=== PATIENT | male | born 1960 | race Hispanic/Latino ===

== ENCOUNTER 2017-02-06 04:21 | Emergency (ER) | payer MEDICARE, MEDICAID ==
[2017-02-06 04:29] VITALS: BMI 30.7
[2017-02-06 04:30] VITALS: PULSE 78; RESP 18; TEMP 98.4; O2SAT 99
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
[2017-02-06 07:19] VITALS: BP 124/70
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
== END 2017-02-06 07:18 | disposition home or self-care (01) ==
LOC: ED 04:21
DX: S00.83XA Contusion of other part of head, initial encounter (principal); Y09 Assault by unspecified means; H11.32 Conjunctival hemorrhage, left eye; R04.0 Epistaxis; E11.9 Type 2 diabetes mellitus without complications; I10 Essential (primary) hypertension; E78.5 Hyperlipidemia, unspecified

== ENCOUNTER 2018-07-08 06:42 | Day surgery (SDC) | payer MEDICARE, MEDICAID ==
[2018-07-04 12:53] VITALS: BMI 29.7
[2018-07-08] MEDS ORDERED: Bupivacaine 0.5% Inj(30mL) ONE (11:49)
[2018-07-08] MEDS ORDERED: Liquid Adhesive TOP ONE (11:49)
[2018-07-08] MEDS ORDERED: Propofol 10 mg/ml Inj (20 ML) ONE (12:09)
[2018-07-08] MEDS ORDERED: Rocuronium 10 mg/ml (5 ml) ONE (12:10)
[2018-07-08] MEDS ORDERED: Midazolam 2 MG/2 ML VIAL ONE (12:10)
[2018-07-08] MEDS ORDERED: Methylene Blue 10 mg/mL(10ml) IV ONE (12:47)
[2018-07-08] MEDS ORDERED: Neostigmine Methylsulfate 3mg/3ml Syringe IV ONE (13:02)
[2018-07-08] MEDS ORDERED: Desflurane Inhalation Anesthetic Liq (240 ml) ONE (13:47)
--- NOTE | 2018-07-08 13:49 | NM ---
Date of service: 07/08/2018 HISTORY: 58Y Year old female with left breast cancer. TECHNIQUE: Multiple injections of 0.8 mCi of 99m Tc filtered sulfur colloid (total volume of 8 ml) were administered into the left breast tissue surrounding the nipple. Anterior projection images of the chest were subsequently obtained. FINDINGS: Activity is seen around the nipple. There is no migration into the axilla IMPRESSION: As above
[2018-07-08] MEDS ORDERED: Bupivacaine Liposomal Inj 20 ml ONE (13:55)
[2018-07-08] MEDS ORDERED: Sodium Chloride 0.9% 30 ML IV ONE (13:55)
[2018-07-08] MEDS ORDERED: Bupivacaine Liposomal Inj 20 ml INJ ONE (14:11)
[2018-07-08] MEDS ORDERED: HYDROmorphone 0.5 mg/0.5 ml ISec IVP PRN (14:28)
[2018-07-08] MEDS ORDERED: Lactated Ringer's 1,000 ML IV SCH (14:30)
--- NOTE | 2018-07-08 14:31 | PCM.SURG1 ---
Surgeon's Initial Post Op Note - Surgeon's Notes Surgeon: Dr. Bowers Cash Room Clerk: Dr. Bain PGY3, Eros MS4 Type of Anesthesia: General Endo Anesthesia Administered By: Dr. Harden, Dr Qureshi Pre-Operative Diagnosis: Left Breast Invasive Ductal Carcinoma Operative Findings: See operative dictation Post-Operative Diagnosis: Left Breast Invasive Ductal Carcinoma Operation Performed: Left modified radical mastectomy with sentinal lymph node biopsy and and anterior axilliary disection Specimen/Specimens Removed: Left breast, Sentinal lymph node Estimated Blood Loss: EBL {In ML}: 20 Blood Products Given: N/A Drains Used: Shan Post-Op Condition: Good Date of Surgery/Procedure: 07/08/18 Time of Surgery/Procedure: 14:31
[2018-07-08 17:09] VITALS: RESP 20; O2SAT 95
[2018-07-08] MEDS: ceFAZolin 1 gm in NS 1 GM/100 ML BAG IVPB SCH (21:43)
[2018-07-08] MEDS: Enoxaparin 30 mg Syringe SC SCH (21:45)
[2018-07-08 22:37] LABS: BASO # 0.01 K/mm3 (0.0-2.0); BASO % 0.1 % (0.0-3.0); GRAN # 10.38 (1.4-6.5); GRAN % 88.4 % (50.0-68.0); HEMOGLOBIN 13.3 g/dL (14.0-18.0); LYMPH # 0.7 (1.2-3.4); LYMPH % 6.1 % (22.0-35.0); MEAN CELL VOLUME 84.8 fl (80.0-105.0); MEAN CORPUSCULAR HEMOGLOBIN 28.9 pg (25.0-35.0); MEAN CORPUSCULAR HGB CONC 34.1 g/dl (31.0-37.0); MEAN PLATELET VOLUME 9.6 fl (7.0-11.0); MONO # 0.6 (0.1-0.6); MONO % 5.4 % (1.0-6.0); RBC 4.6 10^6/uL (3.5-6.1); WHITE BLOOD COUNT 11.7 10^3/ul (4.5-11.0)
--- NOTE | 2018-07-08 23:40 | OP ---
PROCEDURE DATE: 07/08/2018 PREOPERATIVE DIAGNOSIS: Left breast cancer. POSTOPERATIVE DIAGNOSIS: Left breast cancer. PROCEDURE PERFORMED: Left mastectomy with sentinel lymph node biopsy and superficial left axillary lymphadenectomy. SURGEON: Mohsen Bowers MD. DRIVEWAY SEALER: Adrian Bain DO. ANESTHESIOLOGISTS: Dr. Ajay Rm MD and Jeffrey Qureshi MD. ANESTHESIA: General endotracheal anesthesia. ESTIMATED BLOOD LOSS: Minimal. SPECIMEN: Left breast with superficial and axillary content and sentinel lymph node. INDICATIONS: The patient is a 58-year-old male with history of left breast mass, which was diagnosed through the biopsy as a breast cancer. The patient was brought in for a left mastectomy and sentinel lymph node biopsy with possible biopsy of the lymph nodes. DESCRIPTION OF PROCEDURE: The patient was brought to the operating room, placed on the operating table in the supine position. The patient was connected to EKG, blood pressure and pulse oximetry monitors. An elevation roll was placed under the left shoulder in order to expose the axilla better. The patient then was prepped and draped in the usual sterile fashion. First, a standard time-out procedure took place when everybody in the room agreed as to the patient/s identity, diagnoses and the procedure to be performed. An operative as well as postoperative plan were explained to the OR team. We then proceeded with surgery. First, the area of the left breast was infiltrated with lidocaine mixed with Marcaine. Using lidocaine, the area of the infusion was infiltrated after it was marked. An elliptical incision was made including the nipple and dissection was done by raising flaps superiorly and inferiorly below and above the breast and the breast tissue was carefully lifted off the pectoralis muscle and towards the axilla. Scintigraphy was done with the gamma probe proving the area of the most pickup being in the inferior axilla. This was carefully dissected out and a fairly large lymph node was removed. This was sent for frozen section as a sentinel lymph node. The superficial lymphadenopathy was done as well by including superficial portion of the axillary content. Once this was detached, the breast was marked by marking the tale of the breast farthest towards the axilla and then superior margin of the breast was also marked with a short stitch. Once this was all done, the specimen was sent out for pathology. The wound was then copiously irrigated. All the bleeding points were cauterized. The Shan drain was placed and sutured to the skin with stitch. The wound was closed in layers using 3-0 Vicryl for the deep dermal layer and surgical staple for skin and sterile Dermabond dressing was applied to the wound. The patient tolerated the procedure well and there were no complications. The patient was awakened and transferred to the recovery room for further observation. Mohsen Bowers MD
[2018-07-09] MEDS: ceFAZolin 1 gm in NS 1 GM/100 ML BAG IVPB SCH (05:35)
--- NOTE | 2018-07-09 08:02 | CP.PCM.PN ---
Subjective - Date & Time of Evaluation Date of Evaluation: 07/09/18 Time of Evaluation: 08:00 - Subjective Subjective: Patient seen and examined at bedside. No acute events overnight. JOSE LUIS drain in place and draining 360 mL serosanguinous fluid overnight. Denies chest pain, abdominal pain, or any other complaints at this time. Objective - Vital Signs/Intake and Output Vital Signs (last 24 hours): Temp Pulse Resp BP Pulse Ox 98.9 F 71 20 131/81 95 07/08/18 17:08 07/08/18 17:08 07/08/18 17:08 07/08/18 17:08 07/08/18 17:08 Intake and Output: 07/09/18 07/09/18 06:59 18:59 Intake Total 360 Output Total 1035 Balance -675 - Medications Medications: Current Medications Atorvastatin Calcium (Lipitor) 40 mg PO DAILY [facility] Enoxaparin Sodium (Lovenox) 30 mg SC 1000,2200 PAUL; Protocol Last Admin: 07/08/18 21:45 Dose: 30 mg Cefazolin Sodium (Ancef 1gm In Ns) 1 gm in 100 mls @ 100 mls/hr IVPB Q8 PAUL; Protocol Last Admin: 07/09/18 05:35 Dose: 100 mls/hr Metformin HCl (Glucophage) 500 mg PO DAILY [facility] Non-Formulary Medication (Nebivolol [Bystolic]) 5 mg PO DAILY [facility] - Labs Labs: 07/08/18 22:35 - Constitutional Appears: Well, Non-toxic, No Acute Distress - Head Exam Head Exam: ATRAUMATIC, NORMOCEPHALIC - Eye Exam Eye Exam: Normal appearance - ENT Exam ENT Exam: Mucous Membranes Moist - Respiratory Exam Respiratory Exam: NORMAL BREATHING PATTERN. absent: Accessory Muscle Use, Respiratory Distress - Cardiovascular Exam Cardiovascular Exam: RRR - GI/Abdominal Exam GI & Abdominal Exam: Soft. absent: Distended, Guarding, Tenderness Additional comments: Chest binders in place, incision site C/D/I, left JOSE LUIS drain in place - Neurological Exam Neurological Exam: Alert, Awake, Oriented x3 - Skin Skin Exam: Dry, Intact, Normal Color, Warm Assessment and Plan - Assessment and Plan (Free Text) Assessment: Patient is a 58 year old male with left breast cancer s/p left mastectomy with sentinel node. Plan: - Encourage ambulation as tolerated. - Measure I's and O's. - Advance to regular diet today. - Plan to discharge today with JOSE LUIS drain, will teach sister how to empty and record drain output. Discussed case with Dr. Elissa Mcdonald DO PGY-1
[2018-07-09 08:36] VITALS: BP 117/78; PULSE 80; TEMP 98
[2018-07-09 09:13] LABS: BASO # 0.01 K/mm3 (0.0-2.0); BASO % 0.1 % (0.0-3.0); EOS % 0.1 % (1.5-5.0); GRAN # 6.6 (1.4-6.5); GRAN % 67.2 % (50.0-68.0); HEMOGLOBIN 12.1 g/dL (14.0-18.0); MEAN CELL VOLUME 84.1 fl (80.0-105.0); MEAN CORPUSCULAR HEMOGLOBIN 28.7 pg (25.0-35.0); MEAN CORPUSCULAR HGB CONC 34.1 g/dl (31.0-37.0); MEAN PLATELET VOLUME 9.4 fl (7.0-11.0); MONO # 1.2 (0.1-0.6); MONO % 12.6 % (1.0-6.0); RBC 4.22 10^6/uL (3.5-6.1); RED CELL DISTRIBUTION WIDTH 12.9 % (11.5-14.5); WHITE BLOOD COUNT 9.8 10^3/ul (4.5-11.0)
[2018-07-09] MEDS ORDERED: Non Formulary Medication (Rosuvastatin Calcium [Crestor] 10 MG) PO SCH (10:00)
[2018-07-09] MEDS ORDERED: Non Formulary Medication (Nebivolol [Bystolic] 5 MG) PO SCH (10:00)
[2018-07-09] MEDS: Enoxaparin 30 mg Syringe SC SCH (10:15)
--- NOTE | 2018-07-09 13:32 | CP.PCM.DIS ---
Provider - Provider Attending physician: Mohsen Bowers MD Primary care physician: Cheko Anne MD Time Spent in preparation of Discharge (in minutes): 45 Diagnosis - Discharge Diagnosis (1) Cancer of left male breast Status: Resolved (2) HTN (hypertension) Status: Chronic Hospital Course - Lab Results Lab Results: Most Recent Lab Values WBC 9.8 10^3/ul (4.5-11.0) 07/09/18 09:00 RBC 4.22 10^6/uL (3.5-6.1) 07/09/18 09:00 Hgb 12.1 g/dL (14.0-18.0) L 07/09/18 09:00 Hct 35.5 % (42.0-52.0) L 07/09/18 09:00 MCV 84.1 fl (80.0-105.0) 07/09/18 09:00 MCH 28.7 pg (25.0-35.0) 07/09/18 09:00 MCHC 34.1 g/dl (31.0-37.0) 07/09/18 09:00 RDW 12.9 % (11.5-14.5) 07/09/18 09:00 Plt Count 166 10^3/uL (120.0-450.0) 07/09/18 09:00 MPV 9.4 fl (7.0-11.0) 07/09/18 09:00 Gran % 67.2 % (50.0-68.0) 07/09/18 09:00 Lymph % (Auto) 20.0 % (22.0-35.0) L 07/09/18 09:00 [place]alle % (Auto) 12.6 % (1.0-6.0) H 07/09/18 09:00 Eos % (Auto) 0.1 % (1.5-5.0) L 07/09/18 09:00 Baso % (Auto) 0.1 % (0.0-3.0) 07/09/18 09:00 Gran # 6.60 (1.4-6.5) H 07/09/18 09:00 Lymph # (Auto) 2.0 (1.2-3.4) 07/09/18 09:00 [place] # (Auto) 1.2 (0.1-0.6) H 07/09/18 09:00 Eos # (Auto) 0.0 (0.0-0.7) 07/09/18 09:00 Baso # (Auto) 0.01 K/mm3 (0.0-2.0) 07/09/18 09:00 Blood Type O POSITIVE 07/08/18 11:25 Blood Type Confirm O POSITIVE 07/08/18 12:00 Antibody Screen Negative 07/08/18 11:25 BBK History Checked No verified bt 07/08/18 11:25 Discharge Exam - Head Exam Head Exam: ATRAUMATIC, NORMOCEPHALIC - Eye Exam Eye Exam: Normal appearance - ENT Exam ENT Exam: Mucous Membranes Moist - Respiratory Exam Respiratory Exam: NORMAL BREATHING PATTERN. absent: Respiratory Distress - Cardiovascular Exam Cardiovascular Exam: RRR. absent: Tachycardia - GI/Abdominal Exam GI & Abdominal Exam: Soft. absent: Distended, Guarding, Tenderness Additional comments: Chest binder in place, incision site C/D/I, left JOSE LUIS drain in place. - Extremities Exam Extremities exam: normal inspection - Neurological Exam Neurological exam: Alert, Oriented x3 - Psychiatric Exam Psychiatric exam: Normal Affect, Normal Mood - Skin Skin Exam: Dry, Intact, Normal Color, Warm Discharge Plan - Discharge Medications Prescriptions: Cephalexin [Keflex] 500 mg PO BID #10 capsule - Follow Up Plan Condition: GOOD Disposition: HOME/ ROUTINE Instructions: Sameer-Barnes Drain, Hypertension (DC), Hypertension (GEN) Additional Instructions: 1. Take Keflex twice a day by mouth for 5 days. 2. Empty and measure drain daily as you were taught by surgical team. 3. Please follow up with your primary care doctor within 1-2 weeks after discharge, Dr. Anne. 4. Please follow up with Dr. Bowers in 1 week to remove drain. 5. Go to the emergency room for worsening or newly concerning symptoms. Referrals: Cheko Anne MD [Primary Care Provider] - Mohsen Bowers MD [Staff Provider] -
== END 2018-07-09 13:43 | disposition home or self-care (01) ==
LOC: SDS 06:42 → 3RSO 16:03 → SDS 07-09 13:43
PROVIDERS: ATTEND General Practice
DX: C50.922 Malignant neoplasm of unspecified site of left male breast (principal); I10 Essential (primary) hypertension; E11.9 Type 2 diabetes mellitus without complications; E66.9 Obesity, unspecified; Z68.29 Body mass index [BMI] 29.0-29.9, adult; E78.00 Pure hypercholesterolemia, unspecified; F79 Unspecified intellectual disabilities; E78.5 Hyperlipidemia, unspecified; Z79.899 Other long term (current) drug therapy
CPT/HCPCS: 19307; 36415 ×2; 78195; 85025 ×2; 86850; 86900; 88305; 88307; 88331; A9541; J0131; J0690 ×2; J1100; J1170; J1650 ×2; J2001; J2250; J2405; J2704; J2710; J2765; J3010 ×2; J7120 ×2

== ENCOUNTER 2018-07-19 17:57 | Emergency (ER) | payer MEDICARE, MEDICAID ==
[2018-07-19 18:30] VITALS: RESP 18; TEMP 98.5; BMI 32.9
--- NOTE | 2018-07-19 18:41 | ED PDOC ---
Arrival/HPI - General Chief Complaint: Abnormal Skin Integrity Time Seen by Provider: 07/19/18 18:38 Historian: Patient - History of Present Illness Narrative History of Present Illness (Text): 07/19/18 18:41 58 yo M s/p L mastectomy by Dr. Bowers on 07/08/18, presents for wound check to his surgical scar to the L chest. Reports no fevers, chills, CP, SOB, N/V, abdominal pain. Has no other complaints. Patient's mother is at the bedside, who reports that the patient has bruising to his chest and abdomen, which has been present since his surgery and is improving. Of note, mother adds that the patient is unaware he had mastectomy for cancer and she would prefer that the patient isn't aware due to his mental disability. Past Medical History - Past History Past History: No Previous - Infectious Disease Hx of Infectious Diseases: None - Tetanus Immunization Tetanus Immunization: Unknown - Cardiac Hx Pacemaker: No - Pulmonary Hx Respiratory Disorders: No - Neurological Hx Paralysis: No - HEENT Hx HEENT Disorder: No - Renal Hx Renal Disorder: No - Endocrine/Metabolic Hx Endocrine Disorders: No - Hematological/Oncological Hx Blood Transfusions: No - Integumentary Hx Dermatological Disorder: No - Musculoskeletal/Rheumatological Hx Musculoskeletal Disorders: No - Gastrointestinal Hx Gastrointestinal Disorders: Yes Hx Gastroesophageal Reflux: Yes - Genitourinary/Gynecological Hx Genitourinary Disorders: No - Psychiatric Hx Emotional Abuse: No Hx Physical Abuse: No Hx Substance Use: No - Past Surgical History Past Surgical History: No Previous - Surgical History Hx Tonsillectomy: Yes - Anesthesia Hx Anesthesia Reactions: No Hx Malignant Hyperthermia: No - Suicidal Assessment Feels Threatened In Home Enviroment: No Family/Social History Family/Social History: Unknown Family HX Smoking Status: Never Smoked Hx Alcohol Use: No Hx Substance Use: No Hx Substance Use Treatment: No Allergies/Home Meds Allergies/Adverse Reactions: Allergies No Known Allergies Allergy (Verified 07/19/18 18:16) Home Medications: Home Meds Medication Instructions Recorded Confirmed Atorvastatin [Lipitor] 40 mg PO DAILY 07/05/18 07/08/18 Rosuvastatin Calcium [Crestor] 10 mg PO DAILY 07/05/18 07/08/18 metFORMIN [glucOPHAGE] 500 mg PO DAILY 07/05/18 07/08/18 Review of Systems - Review of Systems Constitutional: absent: Fatigue, Weight Change, Fevers Respiratory: absent: SOB, Cough Cardiovascular: absent: Chest Pain, Palpitations Gastrointestinal: absent: Abdominal Pain, Diarrhea, Vomiting Genitourinary Male: absent: Dysuria, Frequency Musculoskeletal: absent: Arthralgias, Back Pain, Neck Pain Skin: Other (+bruising). absent: Rash, Pruritis Physical Exam Vital Signs Temp Pulse Resp BP Pulse Ox 07/19/18 18:17 98.5 F 87 18 141/82 96 Temperature: Afebrile Blood Pressure: Normal Pulse: Regular Respiratory Rate: Normal Appearance: Positive for: Well-Appearing, Non-Toxic, Comfortable Pain Distress: None Mental Status: Positive for: Alert and Oriented X 3 - Systems Exam Head: Present: Atraumatic, Normocephalic Pupils: Present: PERRL Extroacular Muscles: Present: EOMI Conjunctiva: Present: Normal Mouth: Present: Moist Mucous Membranes Neck: Present: Normal Range of Motion Respiratory/Chest: Present: Clear to Auscultation, Good Air Exchange, Other (+diagonal stapled surgical scar to the L chest with surrounding ecchymosis and +dried blood noted from the dressing. ). No: Respiratory Distress, Accessory Muscle Use Cardiovascular: Present: Regular Rate and Rhythm, Normal S1, S2. No: Murmurs Abdomen: Present: Other (+ecchymosis to the entire abdomen ). No: Tenderness, Distention, Peritoneal Signs Back: Present: Normal Inspection Upper Extremity: Present: Normal Inspection. No: Cyanosis, Edema Lower Extremity: Present: Normal Inspection. No: Edema Neurological: Present: GCS=15, CN II-XII Intact, Speech Normal Skin: Present: Warm, Dry, Normal Color. No: Rashes Psychiatric: Present: Alert, Oriented x 3, Normal Insight, Normal Concentration Medical Decision Making ED Course and Treatment: 07/19/18 18:38 Plan : - consult with surgery Case d/w Dr. Bowers, who states that the patient had a hematoma to his L chest after the surgery and his drain has been removed so the bruising is not new and is improving. He states that his surgical elastic knitter will evaluate the patient and provide disposition. Patient seen and evaluated by surgical elastic knitter Dr. Jen Ivy, who evaluated the patient at the bedside, she cleaned and dressed his wound. She discussed the case with Dr. Bowers, who agrees with outpatient f/u. Advised to follow up with Dr. Bowers in 1-2 days without fail. Return to the emergency room at any time for any new or worsening symptoms. - PA / LEAD PASTOR / Resident Statement MD/DO has reviewed & agrees with the documentation as recorded. Disposition/Present on Arrival - Present on Arrival Any Indicators Present on Arrival: No History of DVT/PE: No History of Uncontrolled Diabetes: No Urinary Catheter: No History of Decub. Ulcer: No History Surgical Site Infection Following: None - Disposition Have Diagnosis and Disposition been Completed?: Yes Diagnosis: Hematoma, Visit for wound check Disposition: HOME/ ROUTINE Disposition Time: 19:00 Patient Plan: Discharge Condition: STABLE Discharge Instructions (ExitCare): Contusion (DC) Additional Instructions: Thank you for letting us take care of you today. You were treated for hematoma and wound check. The emergency medical care you received today was directed at your acute symptoms. It may take several days for your symptoms to resolve. Return to the Emergency Department if your symptoms worsen, do not improve, or if you have any other problems. Please follow up with Dr. Bowers as advised by surgical elastic knitter. Bring any paperwork you were given at discharge with you along with any medications you are taking to your follow up visit. Our treatment cannot replace ongoing medical care by a primary care provider (PCP) outside of the emergency department. Thank you for allowing the [facility] team to be part of your care today. Forms: [employer] (Kazakh)
[2018-07-19 20:26] VITALS: BP 123/64; PULSE 79; O2SAT 97
== END 2018-07-19 21:03 | disposition home or self-care (01) ==
LOC: ED 17:57
DX: L76.32 Postprocedural hematoma of skin and subcutaneous tissue following other procedure (principal); Y83.8 Other surgical procedures as the cause of abnormal reaction of the patient, or of later complication, without mention of misadventure at the time of the procedure; Y92.89 Other specified places as the place of occurrence of the external cause

== ENCOUNTER 2018-07-20 09:34 | Inpatient (IN) | payer MEDICARE, MEDICAID ==
--- NOTE | 2018-07-20 09:57 | ED PDOC ---
Addendum entered and electronically signed by Pato Blair PA-C 07/20/18 13:57: Addendum Addendum: 07/20/18 13:56 Dr. Reinoso is on the blue list and he is awared. I spoke to DR. Segura, discussed about the case/labs/radiology result as she is covering DR. Hendrickson( covering Dr. Anne), agreed to admit this patient and Dr. Pride on the consult but admit under Dr. Hendrickson service. Original Note: Arrival/HPI - General Time Seen by Provider: 07/20/18 09:46 Historian: Patient - History of Present Illness Narrative History of Present Illness (Text): 07/20/18 09:54 58 year old male, pmh including htn/hld/dm/lt. breast mass/cancer?, nkda, send in by Dr. Chen for lt. breast surgical wound bleeding from hematoma. Pt. stated that he was seen here in the Emergency room yesterday for the same problem as he is bleeding from the surgical site. Pt. had recent lt. breast biopsy, drained removed, been developing hematoma and bleeding from the hematoma site, seen here in the Emergency room yesterday and was clear to discharge home, noticed to have bleeding again today so he came back to the Emergency room which the surgical instrument mechanic is at the bedside prior to my arrival. Pt. has no fever or chills, no night sweat, no rash, no numbness or tingling, no palpitation, no change in vision, no other medical or psychological complaints. Past Medical History - Provider Review Nursing Documentation Reviewed: Yes - Past History Past History: No Previous - Infectious Disease Hx of Infectious Diseases: None - Tetanus Immunization Tetanus Immunization: Unknown - Cardiac Hx Pacemaker: No - Pulmonary Hx Respiratory Disorders: No - Neurological Hx Paralysis: No - HEENT Hx HEENT Disorder: No - Renal Hx Renal Disorder: No - Endocrine/Metabolic Hx Endocrine Disorders: No - Hematological/Oncological Hx Blood Transfusions: No - Integumentary Hx Dermatological Disorder: No - Musculoskeletal/Rheumatological Hx Musculoskeletal Disorders: No - Gastrointestinal Hx Gastrointestinal Disorders: Yes Hx Gastroesophageal Reflux: Yes - Genitourinary/Gynecological Hx Genitourinary Disorders: No - Psychiatric Hx Emotional Abuse: No Hx Physical Abuse: No Hx Substance Use: No - Past Surgical History Past Surgical History: No Previous - Surgical History Hx Tonsillectomy: Yes - Anesthesia Hx Anesthesia Reactions: No Hx Malignant Hyperthermia: No - Suicidal Assessment Feels Threatened In Home Enviroment: No Family/Social History - Physician Review Nursing Documentation Reviewed: Yes Family/Social History: Unknown Family HX Smoking Status: Never Smoked Hx Alcohol Use: No Hx Substance Use: No Hx Substance Use Treatment: No Allergies/Home Meds Allergies/Adverse Reactions: Allergies No Known Allergies Allergy (Verified 07/19/18 18:16) Home Medications: Home Meds Medication Instructions Recorded Confirmed Atorvastatin [Lipitor] 40 mg PO DAILY 07/05/18 07/08/18 Rosuvastatin Calcium [Crestor] 10 mg PO DAILY 07/05/18 07/08/18 metFORMIN [glucOPHAGE] 500 mg PO DAILY 07/05/18 07/08/18 Review of Systems - Review of Systems Constitutional: absent: Fatigue, Fevers Eyes: absent: Vision Changes ENT: absent: Hearing Changes Respiratory: absent: SOB, Cough Cardiovascular: absent: Chest Pain Gastrointestinal: absent: Abdominal Pain, Nausea, Vomiting Skin: absent: Rash, Pruritis, Skin Lesions, Ulcer, Cellulitis Neurological: absent: Headache, Dizziness Psychiatric: absent: Anxiety, Depression, Suicidal Ideation Physical Exam - Systems Exam Head: Present: Atraumatic, Normocephalic Pupils: Present: PERRL Extroacular Muscles: Present: EOMI Conjunctiva: Present: Normal Mouth: Present: Moist Mucous Membranes Neck: Present: Normal Range of Motion Respiratory/Chest: Present: Clear to Auscultation, Good Air Exchange, Other (Lt. lateral chest/breast region visible surgical wound with cristian and hematoma noted with mild oozing with gauze dressing noted, no obvious bony tenderness. ). No: Respiratory Distress, Accessory Muscle Use, Wheezes, Decreased Breath Sounds, Rales, Retracting, Rhonchi, Tachypneic Cardiovascular: Present: Regular Rate and Rhythm, Normal S1, S2. No: Murmurs Abdomen: Present: Other (visible resolving scattered hematoma with more on the lt. sided > rt. side). No: Tenderness, Distention, Peritoneal Signs Back: Present: Normal Inspection Upper Extremity: Present: Normal Inspection. No: Cyanosis, Edema Lower Extremity: Present: Normal Inspection. No: Edema Neurological: Present: GCS=15, CN II-XII Intact, Speech Normal Skin: Present: Warm, Dry, Normal Color. No: Rashes Psychiatric: Present: Alert, Oriented x 3, Normal Insight, Normal Concentration Medical Decision Making ED Course and Treatment: 07/20/18 09:58 -human resources vice president Dr. Sharon Medellin on the bedside, discussed the case with DR. Reinoso, plan is to admit the patient to Dr. Reinoos service for possible surgical procedure to remove the hematoma. -Labs/ekg/cxr ordered 07/20/18 11:05 -EKG: NSR @ 79 BPM, no ST elevation or depression, no T wave inversion -Chest X-Ray Emergency room wet read with no active disease, no acute changes compared with previously except lt. breast/chest with cristian. -Labs show hgb 9.8 from 12.1 (07/09/2018) -Type and screen ordered -All labs and radiology results discussed with the patient. -Will admit the patient as per the surgical team and Dr. Reinoso. - RAD Interpretation Radiology Orders: Date of service: 07/20/2018 HISTORY: medical clearance COMPARISON: 06/19/2018 FINDINGS: LUNGS: No active pulmonary disease. PLEURA: No significant pleural effusion identified, no pneumothorax apparent. CARDIOVASCULAR: Normal. OSSEOUS STRUCTURES: No significant abnormalities. VISUALIZED UPPER ABDOMEN: Normal. OTHER FINDINGS: Left breast/chest wall cristian. IMPRESSION: No active disease. House Decorator: Radiologist - EKG Interpretation EKG Interpretation (Text): 07/20/18 10:43 -EKG: NSR @ 79 BPM, no ST elevation or depression, no T wave inversion Interpreted by ED Physician: Yes Type: 12 lead EKG - PA / NOC TECHNICIAN / Resident Statement MD/DO has reviewed & agrees with the documentation as recorded. Disposition/Present on Arrival - Present on Arrival Any Indicators Present on Arrival: No History of DVT/PE: No History of Uncontrolled Diabetes: No Urinary Catheter: No History of Decub. Ulcer: No History Surgical Site Infection Following: None - Disposition Have Diagnosis and Disposition been Completed?: Yes Diagnosis: Hematoma, Breast mass in male, Bleeding from wound Disposition: HOSPITALIZED Disposition Time: 09:59 Patient Plan: Admission, Observation Patient Problems: Current Active Problems Problem Status Onset Bleeding from wound Acute Breast mass in male Acute Hematoma Acute Condition: STABLE Referrals: Cheko Anne MD [Primary Care Provider] - Follow up with primary
--- NOTE | 2018-07-20 10:17 | CP.PCM.HP ---
History of Present Illness - History of Present Illness History of Present Illness: Surgery H&P Dr. Bowers CC: bleeding from surgical site HPI: Patient is a 58 y/o male s/p Left mastectomy for breast Ca who presents complaining of moderate bleeding from the surgical site. Patient reports being evaluated last night in the ER for similar symptoms. The dressing was changed and patient d/c'd home. Patient reports waking up this morning with a blood drenched shirt. Dressing was not changed at home prior to arrival. He denies dizziness, weakness, SOB, CP. PMH: HTN, DM, Obesity, breast CA, PSH: L mastectomy, tonsillectomy Social: lives with sister who is primary caregiver due to mental disability, no etoh, tobacco, or drug use Present on Admission - Present on Admission Any Indicators Present on Admission: No Review of Systems - Constitutional Constitutional: absent: Anorexia, Chills, Fever - EENT Eyes: absent: Blurred Vision, Change in Vision Nose/Mouth/Throat: absent: Sore Throat, Neck Pain - Cardiovascular Cardiovascular: absent: Chest Pain, Diaphoresis - Respiratory Respiratory: absent: Cough, Wheezing - Gastrointestinal Gastrointestinal: absent: Abdominal Pain, Bloating - Genitourinary Genitourinary: absent: Hematuria, Pyuria - Integumentary Integumentary: Bleeding Lesions - Neurological Neurological: absent: Headaches, Weakness - Psychiatric Psychiatric: absent: Behavioral Changes, Depression - Endocrine Endocrine: absent: Polyphagia, Polyuria - Hematologic/Lymphatic Hematologic: Easy Bruising. absent: Easy Bleeding Past Patient History - Infectious Disease Hx of Infectious Diseases: None - Tetanus Immunizations Tetanus Immunization: Unknown - Past Medical History & Family History Past Medical History?: Yes - Past Social History Smoking Status: Never Smoked - CARDIAC Hx Cardiac Disorders: Yes Hx Hypertension: Yes Hx Pacemaker: No - PULMONARY Hx Respiratory Disorders: No - NEUROLOGICAL Hx Paralysis: No - HEENT Hx HEENT Problems: No - RENAL Hx Chronic Kidney Disease: No - ENDOCRINE/METABOLIC Hx Endocrine Disorders: Yes Hx Diabetes Mellitus Type 2: Yes - HEMATOLOGICAL/ONCOLOGICAL Hx Blood Transfusions: No - INTEGUMENTARY Hx Dermatological Problems: No - MUSCULOSKELETAL/RHEUMATOLOGICAL Hx Musculoskeletal Disorders: No - GASTROINTESTINAL Hx Gastrointestinal Disorders: Yes Hx Gastroesophageal Reflux: Yes - GENITOURINARY/GYNECOLOGICAL Hx Genitourinary Disorders: No - PSYCHIATRIC Hx Emotional Abuse: No Hx Physical Abuse: No Hx Substance Use: No - SURGICAL HISTORY Hx Breast Biopsy: Yes Hx Mastectomy: Yes Hx Tonsillectomy: Yes - ANESTHESIA Hx Anesthesia: Yes Hx Anesthesia Reactions: No Hx Malignant Hyperthermia: No Meds Allergies/Adverse Reactions: Allergies Allergy/AdvReac Type Severity Reaction Status Date / Time No Known Allergies Allergy Verified 07/19/18 18:16 Physical Exam - Constitutional Appears: Non-toxic, No Acute Distress - Head Exam Head Exam: ATRAUMATIC, NORMOCEPHALIC - Eye Exam Eye Exam: EOMI, Normal appearance - ENT Exam ENT Exam: Mucous Membranes Moist - Respiratory Exam Respiratory Exam: NORMAL BREATHING PATTERN. absent: Respiratory Distress - Cardiovascular Exam Cardiovascular Exam: REGULAR RHYTHM. absent: Tachycardia - Skin Additional comments: Left breast surgical site closed with cristian, moderate bruising noted to axillary line apparently improved per patient report, area of swelling noted beneth mastectomy site, nonindurated probable hematoma. Medial staple line with .5cm opening oozing dark old blood, most likely from retained hematoma. Old drain site CDI, healing well. Assessment & Plan - Assessment and Plan (Free Text) Assessment: 58 y/o male s/p left mastectomy for breast CA on Jul 08 now with bleeding from surgical site, most likely retained hematoma Plan: -stat type and screen and basic labs -ok for diet -pressure dressing in place -change dressing as needed with gauze, ABD and kerlex vs ijeoma wrap for compression -restart home meds -admit for serial hgbs and wound care -Vitals Q4hr -d/w Dr. Bowers and ER team AKWhite PGY4 - Date & Time Date: 07/20/18 Time: 10:28
[2018-07-20] MEDS ORDERED: Sodium Chloride 0.9% 1,000 ML IV SCH (10:30)
[2018-07-20] MEDS ORDERED: Dextrose 50% SYRINGE Inj (50 ml) IV PRN (10:34)
[2018-07-20 10:54] LABS: BASO # 0.01 K/mm3 (0.0-2.0); BASO % 0.1 % (0.0-3.0); EOS # 0.3 (0.0-0.7); EOS % 2.8 % (1.5-5.0); GRAN # 6.53 (1.4-6.5); GRAN % 71.3 % (50.0-68.0); HEMOGLOBIN 9.8 g/dL (14.0-18.0); LYMPH # 1.4 (1.2-3.4); LYMPH % 15.2 % (22.0-35.0); MEAN CORPUSCULAR HEMOGLOBIN 28.2 pg (25.0-35.0); MEAN CORPUSCULAR HGB CONC 32.5 g/dl (31.0-37.0); MEAN PLATELET VOLUME 9.3 fl (7.0-11.0); MONO % 10.6 % (1.0-6.0); RBC 3.47 10^6/uL (3.5-6.1); RED CELL DISTRIBUTION WIDTH 13.3 % (11.5-14.5); WHITE BLOOD COUNT 9.2 10^3/ul (4.5-11.0)
--- NOTE | 2018-07-20 10:56 | RAD ---
Date of service: 07/20/2018 HISTORY: medical clearance COMPARISON: 06/19/2018 FINDINGS: LUNGS: No active pulmonary disease. PLEURA: No significant pleural effusion identified, no pneumothorax apparent. CARDIOVASCULAR: Normal. OSSEOUS STRUCTURES: No significant abnormalities. VISUALIZED UPPER ABDOMEN: Normal. OTHER FINDINGS: Left breast/chest wall cristian. IMPRESSION: No active disease.
[2018-07-20 11:00] LABS: ALB/GLOB RATIO 1.2 (1.1-1.8); ALBUMIN 3.7 g/dL (3.0-4.8); ALT/SGPT 35 U/L (7-56); AST/SGOT 25 U/L (17-59); BLOOD UREA NITROGEN 9 mg/dL (7-21); CALCIUM 9.1 mg/dL (8.4-10.5); GFR NON-AFRICAN AMERICAN > 60; INR 1.24; PARTIAL THROMBOPLASTIN TIME 29.9 Seconds (25.1-36.5); PROTHROMBIN TIME 14.3 SECONDS (9.4-12.5)
[2018-07-20] MEDS ORDERED: Insulin Lispro (humaLOG) LOW Coverage SC SCH (11:30)
[2018-07-20] MEDS ORDERED: Pneumococcal 23-Valent Vaccine IM ONE (18:57)
[2018-07-20] MEDS ORDERED: Influenza Vaccine 60 mcg/0.5 mL SYR (4YR UP) IM ONE (18:57)
[2018-07-20 18:58] VITALS: BMI 28.3
[2018-07-20] MEDS: Vancomycin 1gm in NS 250ml 1 GM/250 ML BAG IVPB SCH (19:08)
[2018-07-20] MEDS: Insulin Lispro (humaLOG) MEDIUM Coverage SC SCH (22:03)
--- NOTE | 2018-07-20 22:27 | CARD ---
APPROVED REPORT Date of service: 07/20/2018 EKG Measurement Heart [id number] <Conclusion> Normal sinus rhythm Nonspecific ST abnormality Abnormal ECG
[2018-07-21] MEDS: Vancomycin 1gm in NS 250ml 1 GM/250 ML BAG IVPB SCH (05:43)
[2018-07-21] MEDS: Insulin Lispro (humaLOG) MEDIUM Coverage SC SCH ×3 (07:00→23:15)
--- NOTE | 2018-07-21 07:32 | CP.PCM.PN ---
Subjective - Date & Time of Evaluation Date of Evaluation: 07/21/18 Time of Evaluation: 06:30 - Subjective Subjective: progress note for Dr. Bowers Patient seen and examined this am at bedside. He is resting comfortably and has no complaints. Dressing is slightly saturated. Patient otherwise denies CHAMORRO, CP, SOB, abdominal pain, n/v, f/c. Objective - Vital Signs/Intake and Output Vital Signs (last 24 hours): Temp Pulse Resp BP Pulse Ox 98.7 F 73 18 125/70 97 07/20/18 15:06 07/20/18 15:06 07/20/18 18:34 07/20/18 15:06 07/20/18 15:06 Intake and Output: 07/21/18 07/21/18 06:59 18:59 Intake Total 360 Output Total 300 Balance 60 - Medications Medications: Current Medications Atorvastatin Calcium (Lipitor) 40 mg PO DAILY [facility] Dextrose (Dextrose 50% Inj) 0 ml IV STAT PRN; Protocol PRN Reason: Hypoglycemia Protocol Dextrose (Dextrose 5% In Water 1000 Ml) 1,000 mls @ 0 mls/hr IV .Q0M PRN; Protocol PRN Reason: Hypoglycemia Protocol Ceftriaxone Sodium (Rocephin 1 Gram Ivpb) 1 gm in 100 mls @ 100 mls/hr IVPB DAILY PAUL; Protocol Vancomycin HCl (Vancomycin 1gm) 1 gm in 250 mls @ 167 mls/hr IVPB Q12H PAUL; Protocol Last Admin: 07/21/18 05:43 Dose: 167 mls/hr Insulin Human Lispro (Humalog Med) 0 units SC ACHS PAUL; Protocol Last Admin: 07/20/18 22:03 Dose: Not Given Losartan Potassium (Cozaar) 100 mg PO DAILY [facility] Metformin HCl (Glucophage) 500 mg PO DAILY [facility] - Labs Labs: 07/20/18 10:30 07/20/18 10:30 PT 14.3 SECONDS (9.4-12.5) H 07/20/18 10:30 INR 1.24 07/20/18 10:30 APTT 29.9 Seconds (25.1-36.5) 07/20/18 10:30 - Constitutional Appears: Well, Non-toxic, No Acute Distress - Head Exam Head Exam: ATRAUMATIC, NORMOCEPHALIC - Eye Exam Eye Exam: EOMI - ENT Exam ENT Exam: Mucous Membranes Moist - Respiratory Exam Respiratory Exam: NORMAL BREATHING PATTERN - Cardiovascular Exam Cardiovascular Exam: REGULAR RHYTHM - GI/Abdominal Exam GI & Abdominal Exam: Soft. absent: Distended, Guarding, Tenderness - Extremities Exam Extremities Exam: absent: Calf Tenderness, Pedal Edema, Tenderness - Neurological Exam Neurological Exam: Alert, Awake, Oriented x3 - Psychiatric Exam Psychiatric exam: Normal Affect, Normal Mood - Skin Skin Exam: Dry, Warm Additional comments: ecchymosis over the left pectoral area extending into the left flank, incision site with cristian is intact with dark bloody output onto dressing consistent with underlying hematoma, dressing changed at bedside Assessment and Plan - Assessment and Plan (Free Text) Assessment: 58 yr old male with hematoma s/p left mastectomy for breast cancer POD 13 Plan: * dressing changes q8 * keep pressure dressing in place * further recs per Dr. Elissa Ivy, PGY 1
[2018-07-21 08:18] LABS: BASO # 0.02 K/mm3 (0.0-2.0); BASO % 0.3 % (0.0-3.0); EOS # 0.3 (0.0-0.7); EOS % 3.9 % (1.5-5.0); GRAN # 5.31 (1.4-6.5); GRAN % 66.4 % (50.0-68.0); HEMOGLOBIN 8.9 g/dL (14.0-18.0); LYMPH # 1.5 (1.2-3.4); LYMPH % 18.9 % (22.0-35.0); MEAN CELL VOLUME 87.1 fl (80.0-105.0); MEAN CORPUSCULAR HEMOGLOBIN 27.9 pg (25.0-35.0); MEAN PLATELET VOLUME 9.1 fl (7.0-11.0); MONO # 0.8 (0.1-0.6); MONO % 10.5 % (1.0-6.0); RBC 3.19 10^6/uL (3.5-6.1); RED CELL DISTRIBUTION WIDTH 13.1 % (11.5-14.5)
[2018-07-21 08:34] LABS: BLOOD UREA NITROGEN 9 mg/dL (7-21); CALCIUM 8.6 mg/dL (8.4-10.5); GFR NON-AFRICAN AMERICAN > 60
[2018-07-21] MEDS ORDERED: Non Formulary Medication (Nebivolol [Bystolic] 5 MG) PO SCH (10:00)
[2018-07-21] MEDS: cefTRIAXone 1 gm 1 GM/100 ML BAG IVPB SCH (11:19)
--- NOTE | 2018-07-21 20:55 | PN ---
DATE: 07/21/2018 SUBJECTIVE: The patient is 58 years old, seen and examined, ambulating, has pressure bandages on his chest that has no more active bleeding. PHYSICAL EXAMINATION: VITAL SIGNS: The patient is afebrile, pulse 78, respirations 20, blood pressure 111/68. LUNGS: Bilateral fair airflow. No rhonchi or crackle. HEART: S1 and S2 audible. ABDOMEN: Soft, obese, nontender. No rebound. No guarding. NEUROLOGIC: The patient is awake, alert, oriented, communicative, ambulatory. LABORATORY DATA: WBC is 8, hemoglobin 8.9, hematocrit 27.8, platelet 226. Chemistry: Sodium 134, potassium 4.1, chloride 101, CO2 of 29, BUN 9, creatinine 0.8, blood sugar of 130. ASSESSMENT: 1. Status post left mastectomy. 2. Mentally challenged. 3. Anemia. 4. Hypertension. 5. [id number] diabetes. PLAN: Currently, the patient is on IV antibiotic. He has pressure bandage done. We will monitor his blood sugar. Follow up CBC in the a.m. Omkar Segura MD
[2018-07-22] MEDS: Vancomycin 1gm in NS 250ml 1 GM/250 ML BAG IVPB SCH ×2 (05:27→18:00)
[2018-07-22] MEDS ORDERED: Potassium Chloride 20 MEQ in Dextrose 5%/0.45% NS 1,000 ML IV SCH (07:30)
[2018-07-22 07:32] LABS: BASO # 0.02 K/mm3 (0.0-2.0); BASO % 0.3 % (0.0-3.0); EOS # 0.4 (0.0-0.7); EOS % 4.9 % (1.5-5.0); GRAN # 4.5 (1.4-6.5); GRAN % 61.3 % (50.0-68.0); HEMOGLOBIN 9.1 g/dL (14.0-18.0); LYMPH # 1.6 (1.2-3.4); LYMPH % 22.3 % (22.0-35.0); MEAN CELL VOLUME 85.8 fl (80.0-105.0); MEAN CORPUSCULAR HEMOGLOBIN 28.1 pg (25.0-35.0); MEAN CORPUSCULAR HGB CONC 32.7 g/dl (31.0-37.0); MEAN PLATELET VOLUME 8.9 fl (7.0-11.0); MONO # 0.8 (0.1-0.6); MONO % 11.2 % (1.0-6.0); RBC 3.24 10^6/uL (3.5-6.1); RED CELL DISTRIBUTION WIDTH 13.1 % (11.5-14.5); WHITE BLOOD COUNT 7.3 10^3/ul (4.5-11.0)
--- NOTE | 2018-07-22 07:34 | CP.PCM.PN ---
Subjective - Date & Time of Evaluation Date of Evaluation: 07/22/18 Time of Evaluation: 07:30 - Subjective Subjective: General Surgery progress note for Dr. Bowers Patient seen and examined at bedside. No acute events overnight. Dressing is slightly saturated. Patient denies fevers, chills, shortness of breath, chest pain, abdominal pain, or any other complaints at this time. Objective - Vital Signs/Intake and Output Vital Signs (last 24 hours): Temp Pulse Resp BP Pulse Ox 98.3 F 76 18 113/68 96 07/21/18 22:00 07/21/18 22:00 07/21/18 22:00 07/21/18 22:00 07/21/18 22:00 Intake and Output: 07/22/18 07/22/18 06:59 18:59 Intake Total 360 Balance 360 - Medications Medications: Current Medications Atorvastatin Calcium (Lipitor) 40 mg PO DAILY [facility] Last Admin: 07/21/18 10:00 Dose: 40 mg Dextrose (Dextrose 50% Inj) 0 ml IV STAT PRN; Protocol PRN Reason: Hypoglycemia Protocol Dextrose (Dextrose 5% In Water 1000 Ml) 1,000 mls @ 0 mls/hr IV .Q0M PRN; Protocol PRN Reason: Hypoglycemia Protocol Ceftriaxone Sodium (Rocephin 1 Gram Ivpb) 1 gm in 100 mls @ 100 mls/hr IVPB DAILY [facility]; Protocol Last Admin: 07/21/18 11:19 Dose: 100 mls/hr Vancomycin HCl (Vancomycin 1gm) 1 gm in 250 mls @ 167 mls/hr IVPB Q12H [facility]; Protocol Last Admin: 07/22/18 05:27 Dose: 167 mls/hr Potassium Chloride 20 meq/ (Dextrose/Sodium Chloride) 1,010 mls @ 115 mls/hr IV .Q8H47M [facility] Insulin Human Lispro (Humalog Med) 0 units SC ACHS [facility]; Protocol Last Admin: 07/21/18 23:15 Dose: Not Given Losartan Potassium (Cozaar) 100 mg PO DAILY [facility] Last Admin: 07/21/18 10:00 Dose: 100 mg Metformin HCl (Glucophage) 500 mg PO DAILY [facility] Last Admin: 07/21/18 10:00 Dose: 500 mg - Labs Labs: 07/21/18 07:00 07/21/18 07:00 PT 14.3 SECONDS (9.4-12.5) H 07/20/18 10:30 INR 1.24 07/20/18 10:30 APTT 29.9 Seconds (25.1-36.5) 07/20/18 10:30 - Constitutional Appears: Well, Non-toxic, No Acute Distress - Head Exam Head Exam: ATRAUMATIC, NORMOCEPHALIC - Eye Exam Eye Exam: Normal appearance - Respiratory Exam Respiratory Exam: NORMAL BREATHING PATTERN. absent: Respiratory Distress - Cardiovascular Exam Cardiovascular Exam: RRR. absent: Bradycardia, Tachycardia - GI/Abdominal Exam GI & Abdominal Exam: Soft. absent: Distended, Firm, Tenderness - Extremities Exam Extremities Exam: Normal Inspection - Neurological Exam Neurological Exam: Alert, Awake, Oriented x3 - Psychiatric Exam Psychiatric exam: Normal Affect, Normal Mood - Skin Skin Exam: Dry, Normal Color, Warm Additional comments: Incision site with cristian is intact with dark bloody output onto dressing consistent with underlying hematoma, dressing changed at bedside. Assessment and Plan - Assessment and Plan (Free Text) Assessment: Patient is a 58 year old male with hematoma s/p left mastectomy for breast cancer POD #14 Plan: - Continue with pressure dressing - Bedside aspiration - Follow up AM labs - Monitor H&H Case discussed with Dr. Elissa Mcdonald PGY-1
[2018-07-22 07:43] LABS: ALB/GLOB RATIO 1.1 (1.1-1.8); ALBUMIN 3.3 g/dL (3.0-4.8); ALT/SGPT 38 U/L (7-56); AST/SGOT 24 U/L (17-59); BLOOD UREA NITROGEN 10 mg/dL (7-21); CALCIUM 8.8 mg/dL (8.4-10.5); GFR NON-AFRICAN AMERICAN > 60
[2018-07-22] MEDS: Insulin Lispro (humaLOG) MEDIUM Coverage SC SCH ×4 (08:20→23:21)
[2018-07-22] MEDS ORDERED: Sodium Chloride 0.45% 1,000 ML IV SCH (08:30)
[2018-07-22] MEDS: cefTRIAXone 1 gm 1 GM/100 ML BAG IVPB SCH (09:12)
--- NOTE | 2018-07-22 09:42 | CP.PCM.PN ---
<Talia Almaguer - Last Filed: 07/22/18 12:02> Subjective - Date & Time of Evaluation Date of Evaluation: 07/22/18 Time of Evaluation: 07:00 - Subjective Subjective: Medicine Progress Note for Chalo Arguello PGY3 Patient seen and examined at bedside. There were no acute overnight events as per nursing staff. Patient reports feeling well today. He denies chest pain, shortness of breath, nausea/vomiting/diarrhea, fever/chills, numbness/tingling, dysuria or hematuria. Objective - Vital Signs/Intake and Output Vital Signs (last 24 hours): Temp Pulse Resp BP Pulse Ox 98 F 76 18 117/72 96 07/22/18 06:00 07/22/18 06:00 07/22/18 06:00 07/22/18 06:00 07/22/18 06:00 Intake and Output: 07/22/18 07/22/18 06:59 18:59 Intake Total 360 Balance 360 - Medications Medications: Current Medications Atorvastatin Calcium (Lipitor) 40 mg PO DAILY [facility] Last Admin: 07/22/18 09:14 Dose: 40 mg Ceftriaxone Sodium (Rocephin 1 Gram Ivpb) 1 gm in 100 mls @ 100 mls/hr IVPB DAILY [facility]; Protocol Stop: 07/25/18 10:59 Last Admin: 07/22/18 09:12 Dose: 100 mls/hr Vancomycin HCl (Vancomycin 1gm) 1 gm in 250 mls @ 167 mls/hr IVPB Q12H [facility]; Protocol Last Admin: 07/22/18 05:27 Dose: 167 mls/hr Sodium Chloride (Sodium Chloride 0.45%) 1,000 mls @ 50 mls/hr IV .Q20H [facility] Stop: 07/23/18 04:29 Last Admin: 07/22/18 09:12 Dose: 50 mls/hr Insulin Human Lispro (Humalog Med) 0 units SC ACHS [facility]; Protocol Last Admin: 07/22/18 08:20 Dose: Not Given Losartan Potassium (Cozaar) 100 mg PO DAILY [facility] Last Admin: 07/22/18 09:10 Dose: 100 mg - Labs Labs: 07/22/18 07:00 07/22/18 07:00 PT 14.3 SECONDS (9.4-12.5) H 07/20/18 10:30 INR 1.24 07/20/18 10:30 APTT 29.9 Seconds (25.1-36.5) 07/20/18 10:30 - Constitutional Appears: No Acute Distress - Head Exam Head Exam: ATRAUMATIC, NORMAL INSPECTION, NORMOCEPHALIC - Eye Exam Eye Exam: EOMI, Normal appearance, PERRL Pupil Exam: NORMAL ACCOMODATION, PERRL - ENT Exam ENT Exam: Mucous Membranes Moist - Neck Exam Neck Exam: Full ROM, Normal Inspection - Respiratory Exam Respiratory Exam: Clear to Ausculation Bilateral, NORMAL BREATHING PATTERN. absent: Rales, Rhonchi, Wheezes, Respiratory Distress Additional comments: patient has dressing in place with some bloody drainage from the L breast - Cardiovascular Exam Cardiovascular Exam: Gallop, REGULAR RHYTHM, RRR, +S1, +S2. absent: Rubs, Murmur - GI/Abdominal Exam GI & Abdominal Exam: Soft, Normal Bowel Sounds. absent: Guarding, Rigid, Tenderness, Mass, Rebound - Extremities Exam Extremities Exam: Full ROM, Normal Capillary Refill, Normal Inspection. absent: Calf Tenderness, Pedal Edema, Tenderness - Neurological Exam Neurological Exam: Alert, Awake, CN II-XII Intact, Oriented x3 - Psychiatric Exam Psychiatric exam: Normal Affect, Normal Mood - Skin Skin Exam: Dry, Warm Assessment and Plan - Assessment and Plan (Free Text) Assessment: 1. Acute anemia - secondary to blood loss from L breast s/p mastectomy 2. L breast ca s/p mastectomy on 07/09/2018 3. HTN 4. DM-II 5. Obesity 6. Cognitive impairment 7. Dyslipidemia Plan: Labs and imaging reviewed. Hgb is stable. Will continue to monitor. Surgery on consult. Patient may go back to OR today. He is NPO and on IV fluids. He is on Rocephin and Vanc for possible wound infection. Cultures pending. Continue Cozaar for HTN and Lipitor for HLD. He is on ISS for DM. Patient ambulating on own. Will be d/c home once medically stable. Case seen, discussed and reviewed with Dr. Sapna Almaguer PGY3 <Vineet Alejo - Last Filed: 07/22/18 21:12> Objective - Vital Signs/Intake and Output Vital Signs (last 24 hours): Temp Pulse Resp BP Pulse Ox 98 F 76 18 117/72 96 07/22/18 06:00 07/22/18 06:00 07/22/18 06:00 07/22/18 06:00 07/22/18 06:00 - Medications Medications: Current Medications Atorvastatin Calcium (Lipitor) 40 mg PO DAILY [facility] Last Admin: 07/22/18 09:14 Dose: 40 mg Ceftriaxone Sodium (Rocephin 1 Gram Ivpb) 1 gm in 100 mls @ 100 mls/hr IVPB DAILY [facility]; Protocol Stop: 07/25/18 10:59 Last Admin: 07/22/18 09:12 Dose: 100 mls/hr Vancomycin HCl (Vancomycin 1gm) 1 gm in 250 mls @ 167 mls/hr IVPB Q12H [facility]; Protocol Last Admin: 07/22/18 18:00 Dose: 167 mls/hr Sodium Chloride (Sodium Chloride 0.45%) 1,000 mls @ 50 mls/hr IV .Q20H [facility] Stop: 07/23/18 04:29 Last Admin: 07/22/18 09:12 Dose: 50 mls/hr Insulin Human Lispro (Humalog Med) 0 units SC ACHS [facility]; Protocol Last Admin: 07/22/18 17:59 Dose: 1 unit Losartan Potassium (Cozaar) 100 mg PO DAILY [facility] Last Admin: 07/22/18 09:10 Dose: 100 mg - Labs Labs: 07/22/18 07:00 07/22/18 07:00 PT 14.3 SECONDS (9.4-12.5) H 07/20/18 10:30 INR 1.24 07/20/18 10:30 APTT 29.9 Seconds (25.1-36.5) 07/20/18 10:30 Assessment and Plan - Assessment and Plan (Free Text) Plan: Pt seen and examined. I have reviewed the note of the biomedical photographer and agree with it. I have discussed the assessment and plan with the resident. I have reviewed the patient's labs and medications. Pt with bleeding from surgical wound. He may be going back to the OR. He is on IV Vanco and Rocephin. Pt is on Lipitro for dyslipidemia. He denies pain. Surgery is following us.
[2018-07-22 13:27] LABS: IRON 21 ug/dL (45-180)
[2018-07-22 13:36] LABS: % IRON SATURATION 7 % (20-55); TOTAL IRON BINDING CAPACITY 296 ug/dL (261-462)
[2018-07-23] MEDS: Vancomycin 1gm in NS 250ml 1 GM/250 ML BAG IVPB SCH (05:20)
[2018-07-23 07:42] LABS: BASO # 0.02 K/mm3 (0.0-2.0); BASO % 0.3 % (0.0-3.0); EOS # 0.4 (0.0-0.7); EOS % 6.5 % (1.5-5.0); GRAN # 3.13 (1.4-6.5); GRAN % 53.2 % (50.0-68.0); HEMOGLOBIN 9.2 g/dL (14.0-18.0); LYMPH # 1.6 (1.2-3.4); LYMPH % 27.3 % (22.0-35.0); MEAN CELL VOLUME 86.2 fl (80.0-105.0); MEAN CORPUSCULAR HEMOGLOBIN 28.2 pg (25.0-35.0); MEAN CORPUSCULAR HGB CONC 32.7 g/dl (31.0-37.0); MEAN PLATELET VOLUME 8.9 fl (7.0-11.0); MONO # 0.8 (0.1-0.6); MONO % 12.7 % (1.0-6.0); RBC 3.26 10^6/uL (3.5-6.1); RED CELL DISTRIBUTION WIDTH 13.2 % (11.5-14.5); WHITE BLOOD COUNT 5.9 10^3/ul (4.5-11.0)
[2018-07-23 07:54] LABS: ALB/GLOB RATIO 1.1 (1.1-1.8); ALBUMIN 3.3 g/dL (3.0-4.8); ALT/SGPT 32 U/L (7-56); AST/SGOT 17 U/L (17-59); BLOOD UREA NITROGEN 10 mg/dL (7-21); CALCIUM 8.8 mg/dL (8.4-10.5); GFR NON-AFRICAN AMERICAN > 60
--- NOTE | 2018-07-23 08:20 | CP.PCM.PN ---
Subjective - Date & Time of Evaluation Date of Evaluation: 07/23/18 Time of Evaluation: 08:14 - Subjective Subjective: General Surgery progress note for Dr. Bowers Patient seen and examined at bedside. No acute events overnight. Dressing is saturated, new dressing changed at bedside. Patient denies fevers, chills, shortness of breath, chest pain, abdominal pain, or any other complaints at this time. Objective - Vital Signs/Intake and Output Vital Signs (last 24 hours): Temp Pulse Resp BP Pulse Ox 98 F 71 18 124/74 97 07/22/18 22:22 07/22/18 22:22 07/22/18 22:22 07/22/18 22:22 07/22/18 22:22 Intake and Output: 07/23/18 07/23/18 06:59 18:59 Intake Total 600 Balance 600 - Medications Medications: Current Medications Atorvastatin Calcium (Lipitor) 40 mg PO DAILY [facility] Last Admin: 07/22/18 09:14 Dose: 40 mg Insulin Human Lispro (Humalog Med) 0 units SC [facility]; Protocol Last Admin: 07/22/18 23:21 Dose: Not Given Losartan Potassium (Cozaar) 100 mg PO DAILY [facility] Last Admin: 07/22/18 09:10 Dose: 100 mg - Labs Labs: 07/23/18 07:20 07/23/18 07:20 PT 14.3 SECONDS (9.4-12.5) H 07/20/18 10:30 INR 1.24 07/20/18 10:30 APTT 29.9 Seconds (25.1-36.5) 07/20/18 10:30 - Constitutional Appears: Well, Non-toxic, No Acute Distress - Head Exam Head Exam: ATRAUMATIC, NORMOCEPHALIC - Eye Exam Eye Exam: Normal appearance - ENT Exam ENT Exam: Mucous Membranes Moist - Respiratory Exam Respiratory Exam: NORMAL BREATHING PATTERN. absent: Respiratory Distress - Cardiovascular Exam Cardiovascular Exam: RRR. absent: Bradycardia, Tachycardia - GI/Abdominal Exam GI & Abdominal Exam: Soft. absent: Distended, Firm, Guarding, Tenderness - Extremities Exam Extremities Exam: Normal Inspection - Neurological Exam Neurological Exam: Alert, Awake, Oriented x3 - Psychiatric Exam Psychiatric exam: Normal Affect, Normal Mood - Skin Skin Exam: Dry, Intact, Normal Color, Warm Additional comments: Incision site with cristian is intact with dark bloody output onto dressing consistent with underlying hematoma, dressing changed at bedside. Assessment and Plan - Assessment and Plan (Free Text) Assessment: Patient is a 58 year old male with hematoma s/p left mastectomy for breast cancer POD #15. Plan: - Needle aspiration today at bedside - Continue dressing changes Q12 - Follow up AM labs - Monitor H&H Case discussed with Dr. Elissa Mcdonald PGY-1
--- NOTE | 2018-07-23 09:26 | CON ---
DATE: 07/20/2018 HISTORY OF PRESENT ILLNESS: The patient is 58 years old, patient of Dr. Alejo came to emergency room because of bleeding from his surgical site. He came with similar complaint last night who had dressing done and was sent home. When he woke up this morning he had blood on his shirt; because of above-mentioned condition, he came to emergency room for further evaluation. Denies any headache. No nausea or vomiting. No diarrhea. PAST MEDICAL HISTORY: Significant for: 1. Non-insulin dependent diabetes. 2. Hypertension. 3. Morbid obesity. 4. History of carcinoma of the breast, status post left mastectomy. 5. History of being mentally challenged. ALLERGIES: HE IS NOT ALLERGIC TO ANY MEDICATIONS. MEDICATIONS AT HOME: 1. Metformin 500 mg twice a day. 2. Crestor 10 mg daily. 3. Bystolic 5 mg daily. 4. Keflex. 5. Darvocet. SOCIAL HISTORY: Lives with his sister. Denies smoking, drinking or alcohol use. PHYSICAL EXAMINATION GENERAL: He is awake, alert, oriented, able to communicate. VITAL SIGNS: He is afebrile, pulse 73, respiration 18 and blood pressure 125/70. CHEST: His left surgical site, he is bleeding from the left mastectomy wound. LUNGS: Bilateral fair airflow. No rhonchi or crackles. HEART: S1 and S2 audible. ABDOMEN: Soft and nontender. No rebound. No guarding. NEUROLOGICAL: He is awake, alert, oriented, able to communicate. LABORATORY DATA: WBC is 7.2, hemoglobin 9.8, hematocrit 30 and platelet of 228. PT 14.3 and INR 1.24. Chemistry; sodium 136, potassium 4.2, chloride 98, CO2 of 30, BUN 9, creatinine 0.8 and blood sugar of 118. ASSESSMENT: 1. Status post left mastectomy. 2. Bleeding wound. 3. Non-insulin dependent diabetes. 4. Hypertension. 5. Hyperlipidemia. PLAN: The patient will be admitted. We will start him on IV antibiotics, monitor his blood sugar. Surgical team will be following the patient from the surgical point of view. Omkar Segura MD [facility] # [id number]
--- NOTE | 2018-07-23 09:30 | CP.PCM.PN ---
<Talia Almaguer - Last Filed: 07/23/18 09:27> Subjective - Date & Time of Evaluation Date of Evaluation: 07/23/18 Time of Evaluation: 07:00 - Subjective Subjective: Medicine Progress Note for Chalo Arguello PGY3 Patient seen and examined at bedside. As per nursing staff, there were no acute overnight events. Patient reports having some drainage from the L breast but denies any pain, chest pain, shortness of breath, nausea/vomiting/diarrhea, fever/chills, numbness/tingling, dysuria or hematuria. Objective - Vital Signs/Intake and Output Vital Signs (last 24 hours): Temp Pulse Resp BP Pulse Ox 98 F 71 18 124/74 97 07/22/18 22:22 07/22/18 22:22 07/22/18 22:22 07/22/18 22:22 07/22/18 22:22 Intake and Output: 07/23/18 07/23/18 06:59 18:59 Intake Total 600 Balance 600 - Medications Medications: Current Medications Atorvastatin Calcium (Lipitor) 40 mg PO DAILY [facility] Last Admin: 07/22/18 09:14 Dose: 40 mg Insulin Human Lispro (Humalog Med) 0 units SC [facility]; Protocol Last Admin: 07/22/18 23:21 Dose: Not Given Losartan Potassium (Cozaar) 100 mg PO DAILY [facility] Last Admin: 07/22/18 09:10 Dose: 100 mg - Labs Labs: 07/23/18 07:20 07/23/18 07:20 PT 14.3 SECONDS (9.4-12.5) H 07/20/18 10:30 INR 1.24 07/20/18 10:30 APTT 29.9 Seconds (25.1-36.5) 07/20/18 10:30 - Constitutional Appears: No Acute Distress - Head Exam Head Exam: ATRAUMATIC, NORMAL INSPECTION, NORMOCEPHALIC - Eye Exam Eye Exam: Normal appearance, PERRL Pupil Exam: NORMAL ACCOMODATION, PERRL - ENT Exam ENT Exam: Mucous Membranes Moist, Normal Exam - Neck Exam Neck Exam: Full ROM, Normal Inspection. absent: Tenderness, Thyromegaly - Respiratory Exam Respiratory Exam: Clear to Ausculation Bilateral, NORMAL BREATHING PATTERN. absent: Rales, Rhonchi, Wheezes, Stridor Additional comments: L breast has dressing in place- some bloody drainage - Cardiovascular Exam Cardiovascular Exam: REGULAR RHYTHM, RRR, +S1, +S2. absent: Gallop, Rubs, Murmur - GI/Abdominal Exam GI & Abdominal Exam: Soft, Normal Bowel Sounds. absent: Rigid, Tenderness, Mass, Rebound - Extremities Exam Extremities Exam: Full ROM, Normal Capillary Refill, Normal Inspection. absent: Calf Tenderness, Pedal Edema, Tenderness - Neurological Exam Neurological Exam: Alert, Awake, CN II-XII Intact, Normal Gait, Oriented x3 - Psychiatric Exam Psychiatric exam: Normal Affect, Normal Mood - Skin Skin Exam: Dry, Normal Color, Warm Assessment and Plan - Assessment and Plan (Free Text) Assessment: 1. Acute iron deficiency anemia - secondary to blood loss from L breast s/p mastectomy 2. L breast ca s/p mastectomy on 07/09/2018 3. HTN 4. DM-II 5. Obesity 6. Cognitive impairment 7. Dyslipidemia Plan: Labs and imaging reviewed. Iron is low. Will give one dose of Venofer. Patient will have bedside debridement today. There was no sign of infection in the L breast. Antibiotics were discontinued. Continue ISS for DM. Cozaar for HTN. Lipitor for HLD. Pain is controlled and patient is tolerating diet. Case seen, discussed and reviewed with Dr. Sapna Almaguer PGY3 <Vineet Alejo S - Last Filed: 07/23/18 19:22> Objective - Vital Signs/Intake and Output Vital Signs (last 24 hours): Temp Pulse Resp BP Pulse Ox 98.2 F 20 L 96 H 104/67 97 07/23/18 06:00 07/23/18 06:00 07/23/18 06:00 07/23/18 06:00 07/22/18 22:22 Intake and Output: 07/23/18 07/24/18 18:59 06:59 Intake Total 960 540 Output Total 540 Balance 960 0 - Medications Medications: Current Medications Atorvastatin Calcium (Lipitor) 40 mg PO DAILY [facility] Last Admin: 07/23/18 09:45 Dose: 40 mg Insulin Human Lispro (Humalog Med) 0 units SC [facility]; Protocol Last Admin: 07/23/18 09:47 Dose: Not Given Losartan Potassium (Cozaar) 100 mg PO DAILY [facility] Last Admin: 07/23/18 09:45 Dose: 100 mg - Labs Labs: 07/23/18 07:20 07/23/18 07:20 PT 14.3 SECONDS (9.4-12.5) H 07/20/18 10:30 INR 1.24 07/20/18 10:30 APTT 29.9 Seconds (25.1-36.5) 07/20/18 10:30 Assessment and Plan - Assessment and Plan (Free Text) Assessment: Pt seen and examined. I have reviewed the note of the medical office administrator and agree with it. I have discussed the assessment and plan with the resident. I have reviewed the patient's labs and medications. Pt with bleeding from surgery site. He has iron def anemia from blood loss. I did speak to surgery this morning. DM- 2 is controlled. Pain is controlled. Pt will be given IV Venofer. He will con tinue with Lipitor.
[2018-07-23] MEDS: Insulin Lispro (humaLOG) MEDIUM Coverage SC SCH ×2 (09:47→22:03)
--- NOTE | 2018-07-24 06:34 | CP.PCM.PN ---
<Talia Almaguer - Last Filed: 07/24/18 09:44> Subjective - Date & Time of Evaluation Date of Evaluation: 07/24/18 Time of Evaluation: 07:21 - Subjective Subjective: Medicine Progress Note for Chalo Arguello PGY3 Patient seen and examined at bedside. There were no acute overnight events as per nursing staff. Patient is complaining of bloody drainage from the L breast. He denies pain, chest pain, shortness of breath, nausea/vomiting/diarrhea, fever/chills, numbness/tingling, dysuria or hematuria. Objective - Vital Signs/Intake and Output Vital Signs (last 24 hours): Temp Pulse Resp BP Pulse Ox 97.6 F 70 18 117/70 96 07/23/18 22:54 07/23/18 22:54 07/23/18 22:54 07/23/18 22:54 07/23/18 22:54 Intake and Output: 07/23/18 07/24/18 18:59 06:59 Intake Total 960 540 Output Total 540 Balance 960 0 - Medications Medications: Current Medications Atorvastatin Calcium (Lipitor) 40 mg PO DAILY [facility] Last Admin: 07/23/18 09:45 Dose: 40 mg Insulin Human Lispro (Humalog Med) 0 units SC [facility]; Protocol Last Admin: 07/23/18 22:03 Dose: Not Given Losartan Potassium (Cozaar) 100 mg PO DAILY [facility] Last Admin: 07/23/18 09:45 Dose: 100 mg - Labs Labs: 07/23/18 07:20 07/23/18 07:20 PT 14.3 SECONDS (9.4-12.5) H 07/20/18 10:30 INR 1.24 07/20/18 10:30 APTT 29.9 Seconds (25.1-36.5) 07/20/18 10:30 - Constitutional Appears: No Acute Distress - Head Exam Head Exam: ATRAUMATIC, NORMAL INSPECTION, NORMOCEPHALIC - Eye Exam Eye Exam: EOMI, Normal appearance, PERRL Pupil Exam: NORMAL ACCOMODATION, PERRL - ENT Exam ENT Exam: Mucous Membranes Moist - Respiratory Exam Respiratory Exam: Clear to Ausculation Bilateral, NORMAL BREATHING PATTERN. absent: Rales, Rhonchi, Wheezes Additional comments: L breast has dressing in place with bloody drainage - Cardiovascular Exam Cardiovascular Exam: REGULAR RHYTHM, +S1, +S2. absent: Gallop, Rubs, Murmur - GI/Abdominal Exam GI & Abdominal Exam: Soft, Normal Bowel Sounds. absent: Guarding, Rigid, Tende rness, Mass, Rebound - Extremities Exam Extremities Exam: Normal Capillary Refill, Normal Inspection. absent: Calf Tenderness, Pedal Edema, Tenderness - Neurological Exam Neurological Exam: Alert, Awake, CN II-XII Intact, Normal Gait, Oriented x3 - Psychiatric Exam Psychiatric exam: Normal Affect, Normal Mood - Skin Skin Exam: Dry, Normal Color, Warm Assessment and Plan - Assessment and Plan (Free Text) Assessment: 1. Acute iron deficiency anemia - secondary to blood loss from L breast s/p mastectomy 2. L breast ca s/p mastectomy on 07/09/2018 3. HTN 4. DM-II 5. Obesity 6. Cognitive impairment 7. Dyslipidemia Plan: Labs and imaging reviewed. Patient is going to OR today for further evaluation of L breast wound. Hgb is stable. He was given one dose of Venofer. Lipitor for dyslipidemia and will continue Losartan for HTN. Continue ISS for DM. Pain is controlled and will follow up with surgery for further recommendations. Case seen, discussed and reviewed with Dr. Sapna Almaguer PGY3 <Vineet Alejo S - Last Filed: 07/24/18 21:20> Objective - Vital Signs/Intake and Output Vital Signs (last 24 hours): Temp Pulse Resp BP Pulse Ox 98 F 73 18 113/72 94 L 07/24/18 14:00 07/24/18 14:00 07/24/18 14:00 07/24/18 14:00 07/24/18 14:00 Intake and Output: 07/24/18 07/25/18 18:59 06:59 Intake Total 620 Balance 620 - Medications Medications: Current Medications Atorvastatin Calcium (Lipitor) 40 mg PO DAILY [facility] Last Admin: 07/23/18 09:45 Dose: 40 mg Insulin Human Lispro (Humalog Med) 0 units SC [facility]; Protocol Last Admin: 07/24/18 08:07 Dose: Not Given Losartan Potassium (Cozaar) 100 mg PO DAILY [facility] Last Admin: 07/24/18 08:07 Dose: 100 mg Ondansetron HCl (Zofran Inj) 4 mg IVP ONCE PRN PRN Reason: Nausea/Vomiting - Labs Labs: 07/24/18 07:30 07/24/18 07:30 PT 13.3 SECONDS (9.4-12.5) H 07/24/18 07:30 INR 1.15 07/24/18 07:30 APTT 34.3 Seconds (25.1-36.5) 07/24/18 07:30 Assessment and Plan - Assessment and Plan (Free Text) Plan: Pt seen and examined. I have reviewed the note of the medical office professional instructor and agree with it. I have discussed the assessment and plan with the resident. I have reviewed the patient's labs and medications. Pt was taken to the OR today by surgery. I spoke to sister to give update. He is on Losartan for HTN. Continue with ISS for DM-2. No pain. Eating well.
[2018-07-24 07:48] LABS: BASO # 0.02 K/mm3 (0.0-2.0); BASO % 0.3 % (0.0-3.0); EOS # 0.4 (0.0-0.7); EOS % 6.2 % (1.5-5.0); GRAN # 3.2 (1.4-6.5); GRAN % 53.6 % (50.0-68.0); HEMOGLOBIN 9.9 g/dL (14.0-18.0); LYMPH # 1.5 (1.2-3.4); LYMPH % 25.3 % (22.0-35.0); MEAN CELL VOLUME 86.8 fl (80.0-105.0); MEAN CORPUSCULAR HEMOGLOBIN 27.9 pg (25.0-35.0); MEAN CORPUSCULAR HGB CONC 32.1 g/dl (31.0-37.0); MEAN PLATELET VOLUME 8.9 fl (7.0-11.0); MONO # 0.9 (0.1-0.6); MONO % 14.6 % (1.0-6.0); RBC 3.55 10^6/uL (3.5-6.1); RED CELL DISTRIBUTION WIDTH 13.3 % (11.5-14.5)
[2018-07-24 08:03] LABS: ALB/GLOB RATIO 1.1 (1.1-1.8); ALBUMIN 3.7 g/dL (3.0-4.8); ALT/SGPT 33 U/L (7-56); AST/SGOT 24 U/L (17-59); BLOOD UREA NITROGEN 10 mg/dL (7-21); CALCIUM 9.4 mg/dL (8.4-10.5); GFR NON-AFRICAN AMERICAN > 60
[2018-07-24 08:05] LABS: INR 1.15; PARTIAL THROMBOPLASTIN TIME 34.3 Seconds (25.1-36.5); PROTHROMBIN TIME 13.3 SECONDS (9.4-12.5)
[2018-07-24] MEDS: Insulin Lispro (humaLOG) MEDIUM Coverage SC SCH (08:07)
[2018-07-24] MEDS ORDERED: Lidocaine 1% Inj (20ml) ONE ×3 (09:37→10:46)
[2018-07-24] MEDS ORDERED: Propofol 10 mg/ml Inj (20 ML) ONE (09:49)
--- NOTE | 2018-07-24 10:39 | PCM.SURG1 ---
Surgeon's Initial Post Op Note - Surgeon's Notes Surgeon: Dr. Bowers Aircraft Engineer: Dr. Bain PGY3 Type of Anesthesia: General LMA Anesthesia Administered By: Dr. Qureshi Pre-Operative Diagnosis: Left chest hematoma Operative Findings: See operative dictation Post-Operative Diagnosis: Left chest hematoma Operation Performed: Exploration of wound and evacuation of left chest wall hematoma Specimen/Specimens Removed: None Estimated Blood Loss: EBL {In ML}: 5 Blood Products Given: N/A Drains Used: Shan Date of Surgery/Procedure: 07/24/18 Time of Surgery/Procedure: 10:39
[2018-07-24] MEDS ORDERED: HYDROmorphone 1 mg/ml ISec IVP PRN (10:40)
[2018-07-24] MEDS ORDERED: Lactated Ringer's 1,000 ML IV SCH (10:45)
--- NOTE | 2018-07-24 14:20 | CP.PCM.CON ---
History of Present Illness - History of Present Illness History of Present Illness: Amos Williamson PGY2 Heme/Onc Consult Note for Dr. Clark Mr. Diaz is a 58 year old and mentally challenged male with PMH of left breast invasive ductal carcinoma (ER+, WI+, HER2-) s/p L mastectomy (07/08/18), DM2, HTN and obesity who presented to the ED with complaint of bleeding from his mastectomy surgical site. The patient underwent an exploration of wound and evacuation of left chest wall hematoma on 07/24. Heme/Onc was consulted for establishment of care with the patient. The patient's sister, Sarahi, is his caregiver. In discussion, the patient is not aware of his diagnosis of cancer and is apprehensive when the topic is brought up. I discussed with the nurse and she states that his sister, who is not present at the time of exam, requested that he not be notified. The patient has no complaints at this time. 12-pt ROS was reviewed and is otherwise unremarkable. PMD: Dr. Anne PMH: as above PSH: L modified radical mastectomy w/ sentinel node bx and anterior axillary dissection (07/08/18), exploration of wound and evacuation of left chest wall hematoma (07/24/18), tonsillectomy Meds: reviewed, as per MAR Allergies: NKDA SHx: lives with sister who is primary caregiver due to mental disability, no etoh, tobacco, or drug use FHx: patient is unclear Review of Systems - Review of Systems All systems: reviewed and no additional remarkable complaints except (as per HPI) Past Patient History - Infectious Disease Hx of Infectious Diseases: None - Tetanus Immunizations Tetanus Immunization: Unknown - Past Medical History & Family History Past Medical History?: Yes - Past Social History Smoking Status: Never Smoked Alcohol: None Drugs: Denies Home Situation {Lives}: With Family - CARDIAC Hx Cardiac Disorders: Yes Hx Hypercholesterolemia: Yes Hx Hypertension: Yes Hx Pacemaker: No - PULMONARY Hx Respiratory Disorders: No - NEUROLOGICAL Hx Neurological Disorder: Yes (MENTALLY CHALLENGED) - HEENT Hx HEENT Problems: No - RENAL Hx Chronic Kidney Disease: No - ENDOCRINE/METABOLIC Hx Endocrine Disorders: No - HEMATOLOGICAL/ONCOLOGICAL Hx Blood Transfusions: No - INTEGUMENTARY Hx Dermatological Problems: Yes Other/Comment: 07-09-18 LEFT BREAST -HAD BX DONE,DRAINED,REMOVED LARGE CYST. - MUSCULOSKELETAL/RHEUMATOLOGICAL Hx Falls: No - GASTROINTESTINAL Hx Gastrointestinal Disorders: Yes Hx Gastroesophageal Reflux: Yes - GENITOURINARY/GYNECOLOGICAL Hx Genitourinary Disorders: No - PSYCHIATRIC Hx Emotional Abuse: No Hx Physical Abuse: No - SURGICAL HISTORY Hx Surgeries: Yes - ANESTHESIA Hx Anesthesia Reactions: No Hx Malignant Hyperthermia: No Meds Allergies/Adverse Reactions: Allergies Allergy/AdvReac Type Severity Reaction Status Date / Time No Known Allergies Allergy Verified 07/20/18 14:19 - Medications Medications: Current Medications Atorvastatin Calcium (Lipitor) 40 mg PO DAILY [facility] Last Admin: 07/23/18 09:45 Dose: 40 mg Insulin Human Lispro (Humalog Med) 0 units SC ACHS [facility]; Protocol Last Admin: 07/24/18 08:07 Dose: Not Given Losartan Potassium (Cozaar) 100 mg PO DAILY [facility] Last Admin: 07/24/18 08:07 Dose: 100 mg Ondansetron HCl (Zofran Inj) 4 mg IVP ONCE PRN PRN Reason: Nausea/Vomiting Physical Exam - Constitutional Appears: Well, Non-toxic, No Acute Distress, Chronically Ill - Head Exam Head Exam: ATRAUMATIC, NORMAL INSPECTION - Eye Exam Eye Exam: Normal appearance, Nystagmus - ENT Exam ENT Exam: Mucous Membranes Moist - Neck Exam Neck exam: Positive for: Normal Inspection - Respiratory Exam Respiratory Exam: NORMAL BREATHING PATTERN. absent: Respiratory Distress - Cardiovascular Exam Cardiovascular Exam: RRR - GI/Abdominal Exam GI & Abdominal Exam: Soft. absent: Distended, Tenderness - Extremities Exam Extremities exam: Positive for: full ROM. Negative for: pedal edema Additional comments: chest is wrapped in SHAD bandage post-op - Back Exam Back exam: NORMAL INSPECTION - Neurological Exam Neurological exam: Alert - Psychiatric Exam Psychiatric exam: Normal Mood - Skin Skin Exam: Normal Color, Warm Results - Vital Signs Recent Vital Signs: Last Vital Signs Temp 98.3 F 07/24/18 11:50 Pulse 64 07/24/18 11:50 Resp 18 07/24/18 11:50 BP 107/61 07/24/18 11:50 Pulse Ox 98 07/24/18 11:50 - Labs Result Diagrams: 07/24/18 07:30 07/24/18 07:30 Labs: Laboratory Results - last 24 hr 07/23/18 07/23/18 07/24/18 16:13 21:20 06:29 WBC RBC Hgb Hct MCV MCH MCHC RDW Plt Count MPV Gran % Lymph % (Auto) [place] % (Auto) Eos % (Auto) Baso % (Auto) Gran # Lymph # (Auto) [place] # (Auto) Eos # (Auto) Baso # (Auto) PT INR APTT Sodium Potassium Chloride Carbon Dioxide Anion Gap BUN Creatinine Est GFR ( Amer) Est GFR (Non-Af Amer) POC Glucose (mg/dL) 92 105 99 Random Glucose Calcium Phosphorus Magnesium Total Bilirubin AST ALT Alkaline Phosphatase Total Protein Albumin Globulin Albumin/Globulin Ratio 07/24/18 07/24/18 07/24/18 07:30 07:30 07:30 WBC 6.0 RBC 3.55 Hgb 9.9 L Hct 30.8 L MCV 86.8 MCH 27.9 MCHC 32.1 RDW 13.3 Plt Count 280 MPV 8.9 Gran % 53.6 Lymph % (Auto) 25.3 [place] % (Auto) 14.6 H Eos % (Auto) 6.2 H Baso % (Auto) 0.3 Gran # 3.20 Lymph # (Auto) 1.5 [place] # (Auto) 0.9 H Eos # (Auto) 0.4 Baso # (Auto) 0.02 PT 13.3 H INR 1.15 APTT 34.3 Sodium 136 Potassium 3.9 Chloride 99 Carbon Dioxide 29 Anion Gap 11 BUN 10 Creatinine 0.8 Est GFR ( Amer) > 60 Est GFR (Non-Af Amer) > 60 POC Glucose (mg/dL) Random Glucose 120 H Calcium 9.4 Phosphorus 4.1 Magnesium 2.2 Total Bilirubin 0.4 AST 24 ALT 33 Alkaline Phosphatase 109 Total Protein 6.9 Albumin 3.7 Globulin 3.2 Albumin/Globulin Ratio 1.1 07/24/18 12:14 WBC RBC Hgb Hct MCV MCH MCHC RDW Plt Count MPV Gran % Lymph % (Auto) [place] % (Auto) Eos % (Auto) Baso % (Auto) Gran # Lymph # (Auto) [place] # (Auto) Eos # (Auto) Baso # (Auto) PT INR APTT Sodium Potassium Chloride Carbon Dioxide Anion Gap BUN Creatinine Est GFR ( Amer) Est GFR (Non-Af Amer) POC Glucose (mg/dL) 118 H Random Glucose Calcium Phosphorus Magnesium Total Bilirubin AST ALT Alkaline Phosphatase Total Protein Albumin Globulin Albumin/Globulin Ratio Assessment & Plan - Assessment and Plan (Free Text) Assessment: 58 year old and mentally challenged male with PMH of left breast invasive ductal carcinoma (ER+, WI+, HER2-) s/p L mastectomy (07/08/18), DM2, HTN and obesity who presented to the ED with complaint of bleeding from his mastecto my surgical site. The patient does not have established oncology care, and we are requested to establish care with the patient. Imaging and pathology from prior workup was reviewed. Dr. Clark is aware of the case and requests that the sister, Sarahi, contact him. Plan: - Dr. Clark is awaiting call from sister to establish care - cont insulin for hx DM2 - cont anti-cholesterol and anti-hypertensive meds per medical team - analgesia as needed - management per primary medical and surgery teams - further recs per Dr. Clark Case was reviewed and discussed with Dr. Eduardo Williamson PGY2
[2018-07-25 07:21] LABS: HEMOGLOBIN 9.4 g/dL (14.0-18.0); MEAN CELL VOLUME 86.8 fl (80.0-105.0); MEAN CORPUSCULAR HEMOGLOBIN 27.5 pg (25.0-35.0); MEAN CORPUSCULAR HGB CONC 31.6 g/dl (31.0-37.0); MEAN PLATELET VOLUME 8.9 fl (7.0-11.0); RBC 3.42 10^6/uL (3.5-6.1); RED CELL DISTRIBUTION WIDTH 13.5 % (11.5-14.5); WHITE BLOOD COUNT 6.3 10^3/ul (4.5-11.0)
--- NOTE | 2018-07-25 07:24 | CP.PCM.PN ---
<Talia Almaguer - Last Filed: 07/25/18 07:26> Subjective - Date & Time of Evaluation Date of Evaluation: 07/25/18 Time of Evaluation: 07:00 - Subjective Subjective: Medicine Progress Note for Chalo Arguello PGY3 Patient seen and examined at bedside. There were no acute overnight events as per nursing staff. Patient states he feels well today. He denies pain, chest pain, shortness of breath, nausea/vomiting/diarrhea, fever/chills, numbness/tingling, dysuria or hematuria. Objective - Vital Signs/Intake and Output Vital Signs (last 24 hours): Temp Pulse Resp BP Pulse Ox 98.3 F 70 18 118/72 96 07/24/18 22:21 07/24/18 22:21 07/24/18 22:21 07/24/18 22:21 07/24/18 22:21 Intake and Output: 07/25/18 07/25/18 06:59 18:59 Intake Total 500 Balance 500 - Medications Medications: Current Medications Atorvastatin Calcium (Lipitor) 40 mg PO DAILY [facility] Last Admin: 07/23/18 09:45 Dose: 40 mg Insulin Human Lispro (Humalog Med) 0 units SC [facility]; Protocol Last Admin: 07/24/18 08:07 Dose: Not Given Losartan Potassium (Cozaar) 100 mg PO DAILY [facility] Last Admin: 07/24/18 08:07 Dose: 100 mg Ondansetron HCl (Zofran Inj) 4 mg IVP ONCE PRN PRN Reason: Nausea/Vomiting - Labs Labs: 07/24/18 07:30 07/24/18 07:30 PT 13.3 SECONDS (9.4-12.5) H 07/24/18 07:30 INR 1.15 07/24/18 07:30 APTT 34.3 Seconds (25.1-36.5) 07/24/18 07:30 - Constitutional Appears: No Acute Distress - Head Exam Head Exam: ATRAUMATIC, NORMAL INSPECTION, NORMOCEPHALIC - Eye Exam Eye Exam: EOMI, Normal appearance, PERRL Pupil Exam: NORMAL ACCOMODATION, PERRL - ENT Exam ENT Exam: Mucous Membranes Moist - Neck Exam Neck Exam: Full ROM, Normal Inspection. absent: Lymphadenopathy, Tenderness - Respiratory Exam Respiratory Exam: Clear to Ausculation Bilateral, NORMAL BREATHING PATTERN. absent: Rales, Rhonchi, Wheezes Additional comments: L breast has dressing in place with alfredo drain- ~10cc of bloody drainage - Cardiovascular Exam Cardiovascular Exam: REGULAR RHYTHM, +S1, +S2. absent: Gallop, Rubs, Murmur - GI/Abdominal Exam GI & Abdominal Exam: Soft, Normal Bowel Sounds. absent: Guarding, Rigid, Tenderness, Mass, Rebound - Extremities Exam Extremities Exam: Normal Capillary Refill, Normal Inspection. absent: Calf Tenderness, Pedal Edema, Tenderness - Neurological Exam Neurological Exam: Alert, Awake, CN II-XII Intact, Normal Gait, Oriented x3 - Psychiatric Exam Psychiatric exam: Normal Affect, Normal Mood - Skin Skin Exam: Dry, Intact, Normal Color, Warm Assessment and Plan - Assessment and Plan (Free Text) Assessment: 1. Acute iron deficiency anemia - secondary to blood loss from L breast s/p mastectomy 2. L breast ca s/p mastectomy on 07/09/2018 - s/p re-evacuation POD #1 3. HTN 4. DM-II 5. Obesity 6. Cognitive impairment 7. Dyslipidemia Plan: Labs and imaging reviewed. Hgb is stable. Surgery is following patient. Oncology consulted for breast ca to establish care since patient missed outpatient appointment yesterday. Continue Losartan for HTN, ISS for DM-II and Lipitor for dyslipidemia. Patient is tolerating diet and pain is controlled. Case seen, discussed and reviewed with Dr. Sapna Almaguer PGY3 <Vineet Alejo S - Last Filed: 07/25/18 16:47> Objective - Vital Signs/Intake and Output Vital Signs (last 24 hours): Temp Pulse Resp BP Pulse Ox 98.6 F 67 18 107/65 96 07/25/18 14:00 07/25/18 14:00 07/25/18 14:00 07/25/18 14:00 07/25/18 14:00 Intake and Output: 07/25/18 07/25/18 06:59 18:59 Intake Total 500 Balance 500 - Medications Medications: Current Medications Atorvastatin Calcium (Lipitor) 40 mg PO DAILY [facility] Last Admin: 07/23/18 09:45 Dose: 40 mg Insulin Human Lispro (Humalog Med) 0 units SC [facility]; Protocol Last Admin: 07/24/18 08:07 Dose: Not Given Losartan Potassium (Cozaar) 100 mg PO DAILY [facility] Last Admin: 07/24/18 08:07 Dose: 100 mg Ondansetron HCl (Zofran Inj) 4 mg IVP ONCE PRN PRN Reason: Nausea/Vomiting - Labs Labs: 07/25/18 07:00 07/24/18 07:30 PT 13.3 SECONDS (9.4-12.5) H 07/24/18 07:30 INR 1.15 07/24/18 07:30 APTT 34.3 Seconds (25.1-36.5) 07/24/18 07:30 Assessment and Plan - Assessment and Plan (Free Text) Plan: Pt seen and examined. I have reviewed the note of the senior medical billing specialist and agree with it. I have discussed the assessment and plan with the resident. I have reviewed the patient's labs and medications. Pt has breast ca. He was seen by Oncology. He will continue with Losartan for HTN. He will be discharged home. He will continue with Lipitor for dyslipidemia.
--- NOTE | 2018-07-25 08:38 | CP.PCM.PN ---
Subjective - Date & Time of Evaluation Date of Evaluation: 07/25/18 Time of Evaluation: 08:35 - Subjective Subjective: Surgery: Dr. Bowers Patient doing well. Pain controlled. dressing remained clean and dry. NO complaints at this time. Objective - Vital Signs/Intake and Output Vital Signs (last 24 hours): Temp Pulse Resp BP Pulse Ox 98.3 F 70 18 118/72 96 07/24/18 22:21 07/24/18 22:21 07/24/18 22:21 07/24/18 22:21 07/24/18 22:21 Intake and Output: 07/25/18 07/25/18 06:59 18:59 Intake Total 500 Balance 500 - Medications Medications: Current Medications Atorvastatin Calcium (Lipitor) 40 mg PO DAILY [facility] Last Admin: 07/23/18 09:45 Dose: 40 mg Insulin Human Lispro (Humalog Med) 0 units SC [facility]; Protocol Last Admin: 07/24/18 08:07 Dose: Not Given Losartan Potassium (Cozaar) 100 mg PO DAILY [facility] Last Admin: 07/24/18 08:07 Dose: 100 mg Ondansetron HCl (Zofran Inj) 4 mg IVP ONCE PRN PRN Reason: Nausea/Vomiting - Labs Labs: 07/25/18 07:00 07/24/18 07:30 PT 13.3 SECONDS (9.4-12.5) H 07/24/18 07:30 INR 1.15 07/24/18 07:30 APTT 34.3 Seconds (25.1-36.5) 07/24/18 07:30 - Constitutional Appears: Non-toxic, No Acute Distress - Head Exam Head Exam: ATRAUMATIC, NORMOCEPHALIC - Eye Exam Eye Exam: EOMI, Normal appearance - ENT Exam ENT Exam: Mucous Membranes Moist - Respiratory Exam Respiratory Exam: NORMAL BREATHING PATTERN. absent: Respiratory Distress Additional comments: dressing CDI, alfredo w/ 40cc sang output Assessment and Plan - Assessment and Plan (Free Text) Assessment: 58 y/o male s/p L mastectomy w/ post op hematoma s/p wound exploration and hematoma evacuation POD1 Plan: -keep dressing in place -monitor drain output -observe 1 more day -needs home VNS for wound care and drain management -d/w Dr. Bowers [facility] PGY4
--- NOTE | 2018-07-25 12:22 | PCM.PROC ---
Procedure: Blank - Time Time Performed: 18:45 (07/23/18) - Time Out Time Out: Side verified, Site verified, Patient ID confirmed - Procedure Procedure:: Hematoma/seroma aspiration - Consent obtained: Consent obtained: Verbal - Performed by: Performed by:: Attending physician - Indications Indications(s):: left chest wall hematoma/seroma - Contraindications: Contraindications:: None - Patient Position Patient Position:: Supine - Location Location: Left, Lateral, Chest - Description Discription of Procedure: 07/23/18 (Approximately 130 mL of bloody serous fluid was apirated from the left chest wall hematoma) - Result Result: Successful - Post-Procedure Post-procedure:: Hemostasis achieved, Dressing applied, Neurovascular status nml, Vital signs stable - Specimens/Tests Ordered Specimens/Tests Ordered: none - Patient Tolerated Procedure Patient Tolerated Procedure:: Well
--- NOTE | 2018-07-26 02:52 | OP ---
PROCEDURE DATE: 07/24/2018 PREOPERATIVE DIAGNOSIS: Open wound after mastectomy and hematoma. POSTOPERATIVE DIAGNOSIS: Open wound after mastectomy and hematoma. PROCEDURES: 1. Wound exploration on the left chest. 2. Hematoma evacuation. SURGEON: Mohsen Bowers MD. BUDDHIST MONK: Adrian Bain DO. ANESTHESIA ADMINISTERED BY: Jeffrey Qureshi MD. TYPE OF ANESTHESIA: General LMA anesthesia. ESTIMATED BLOOD LOSS: Minimal. SPECIMEN: None. INDICATION FOR PROCEDURE: Patient is a 58-year-old male with history of left breast cancer, status post left mastectomy and axillary central lymph node biopsy. Subsequently patient was discharged to home with drain and was doing well, however, he started lifting some objects and noted swelling in the area of the wound. Patient came to the office and it was noted that patient has a hematoma. At that time it was not leaking. Subsequently patient developed some leakage from the hematoma and was admitted to the hospital for further observation. After several days of observation, the decision was made to proceed to the operating room for hematoma evacuation and wound exploration. Initially, patient did not want to go to operating room as patient has some developmental delay and difficulty understanding his situation. DESCRIPTION OF PROCEDURE: The patient was brought to the operating room, placed on the operating table in the supine position. The patient was connected to EKG, blood pressure and pulse oximetry monitors. The patient then underwent general LMA anesthesia and was prepped and draped in the usual sterile fashion. First, standard time-out procedure took place when everybody in the room agreed as to the patient's identity, diagnoses and the procedure to be performed. Using Candelaria clamps, the cristian in the mid portion of the wound were removed and careful evaluation of the edges of the wound was done. The underlying hematoma was now carefully mobilized and evacuated. We then proceeded with irrigation of the remaining portion of the wound cavity and flushed and suctioned out all the hematoma content. The wound was now copiously irrigated with antibiotic containing solution. The wound was carefully evaluated. There was no evidence of any bleeding noted. We then further irrigated the wound with another 2 L of antibiotics containing solution and proceeded with placement of the new Shan drain, which was sutured to the skin using Ticron stitch. The Shan drain was placed in the dependent position in the wound. The wound itself was now closed using vertical mattress stitches of 3-0 nylon. Once completely closed, the wound was covered with sterile dressing. Patient was awakened, extubated and transferred to recovery room for further observation. Mohsen Bowers MD ROS[facility]
--- NOTE | 2018-07-26 06:31 | CP.PCM.DIS ---
<TrippAtlia - Last Filed: 07/26/18 09:11> Provider - Provider Date of Admission: 07/22/18 08:27 Attending physician: Vineet Alejo MD Primary care physician: Cheko Anne MD Consults: Onc: Eduardo surgery: [facility] Time Spent in preparation of Discharge (in minutes): 35 Hospital Course - Lab Results Lab Results: Most Recent Lab Values WBC 6.3 10^3/ul (4.5-11.0) 07/25/18 07:00 RBC 3.42 10^6/uL (3.5-6.1) L 07/25/18 07:00 Hgb 9.4 g/dL (14.0-18.0) L 07/25/18 07:00 Hct 29.7 % (42.0-52.0) L 07/25/18 07:00 MCV 86.8 fl (80.0-105.0) 07/25/18 07:00 MCH 27.5 pg (25.0-35.0) 07/25/18 07:00 MCHC 31.6 g/dl (31.0-37.0) 07/25/18 07:00 RDW 13.5 % (11.5-14.5) 07/25/18 07:00 Plt Count 285 10^3/uL (120.0-450.0) 07/25/18 07:00 MPV 8.9 fl (7.0-11.0) 07/25/18 07:00 Gran % 53.6 % (50.0-68.0) 07/24/18 07:30 Lymph % (Auto) 25.3 % (22.0-35.0) 07/24/18 07:30 Adams % (Auto) 14.6 % (1.0-6.0) H 07/24/18 07:30 Eos % (Auto) 6.2 % (1.5-5.0) H 07/24/18 07:30 Baso % (Auto) 0.3 % (0.0-3.0) 07/24/18 07:30 Gran # 3.20 (1.4-6.5) 07/24/18 07:30 Lymph # (Auto) 1.5 (1.2-3.4) 07/24/18 07:30 Adams # (Auto) 0.9 (0.1-0.6) H 07/24/18 07:30 Eos # (Auto) 0.4 (0.0-0.7) 07/24/18 07:30 Baso # (Auto) 0.02 K/mm3 (0.0-2.0) 07/24/18 07:30 PT 13.3 SECONDS (9.4-12.5) H 07/24/18 07:30 INR 1.15 07/24/18 07:30 APTT 34.3 Seconds (25.1-36.5) 07/24/18 07:30 Sodium 136 mmol/L (132-148) 07/24/18 07:30 Potassium 3.9 mmol/L (3.6-5.0) 07/24/18 07:30 Chloride 99 mmol/L (98-107) 07/24/18 07:30 Carbon Dioxide 29 mmol/L (21-33) 07/24/18 07:30 Anion Gap 11 (10-20) 07/24/18 07:30 BUN 10 mg/dL (7-21) 07/24/18 07:30 Creatinine 0.8 mg/dl (0.8-1.5) 07/24/18 07:30 Est GFR ( Amer) > 60 07/24/18 07:30 Est GFR (Non-Af Amer) > 60 07/24/18 07:30 POC Glucose (mg/dL) 165 mg/dL (65-110) H 07/25/18 21:14 Random Glucose 120 mg/dL (70-110) H 07/24/18 07:30 Calcium 9.4 mg/dL (8.4-10.5) 07/24/18 07:30 Phosphorus 4.1 mg/dL (2.5-4.5) 07/24/18 07:30 Magnesium 2.2 mg/dL (1.7-2.2) 07/24/18 07:30 Iron 21 ug/dL (45-180) L 07/22/18 13:00 TIBC 296 ug/dL (261-462) 07/22/18 13:00 % Saturation 7 % (20-55) L 07/22/18 13:00 Ferritin 118.0 ng/mL 07/22/18 13:00 Total Bilirubin 0.4 mg/dL (0.2-1.3) 07/24/18 07:30 AST 24 U/L (17-59) 07/24/18 07:30 ALT 33 U/L (7-56) 07/24/18 07:30 Alkaline Phosphatase 109 U/L (38-126) 07/24/18 07:30 Total Protein 6.9 g/dL (5.8-8.3) 07/24/18 07:30 Albumin 3.7 g/dL (3.0-4.8) 07/24/18 07:30 Globulin 3.2 gm/dL 07/24/18 07:30 Albumin/Globulin Ratio 1.1 (1.1-1.8) 07/24/18 07:30 Blood Type O POSITIVE 07/20/18 10:30 Antibody Screen Negative 07/20/18 10:30 BBK History Checked Patient has bt 07/20/18 10:30 - Hospital Course Hospital Course: This is a 58yo male with past medical history of HTN, HLD, DM-II, mild cognitive impairment and L invasive ductal breast ca s/p mastectomy (07/08/18) who was admitted for bleeding from L breast wound after mastectomy and acute iron deficiency anemia. Patient was evaluated by surgery and had L breast hematoma evacuation. Patient has alfredo drain in place. Hgb remained stable and was given one dose of Venofer. His home medications were continued. Patient was also seen by Oncology to establish care. I spoke with sister who takes care of her brother and reports that they will continue to follow up with oncology as outpatient. She was also instructed for her brother to follow up with Dr. Bowers as well as Dr. Anne (PMD). Patient will continue his home medications at home. Patient will also have visiting nurse to help with wound care and sister was educated by neurosurgical physician assistant about proper wound care as well. Both caseworker protective services and I spoke to the sister about the visiting nurse. Sister and patient both verbalized and agreed with discharge plan. - Date & Time of H&P Date of H&P: 07/20/18 Time of H&P: 10:00 Discharge Exam - Head Exam Head Exam: ATRAUMATIC, NORMAL INSPECTION, NORMOCEPHALIC - Eye Exam Eye Exam: EOMI, Normal appearance, PERRL Pupil Exam: NORMAL ACCOMODATION, PERRL - ENT Exam ENT Exam: Mucous Membranes Moist - Neck Exam Neck exam: Full Rom, Normal Inspection - Respiratory Exam Respiratory Exam: Clear to PA & Lateral, NORMAL BREATHING PATTERN, UNREMARKABLE. absent: Rales, Rhonchi, Wheezes - Cardiovascular Exam Cardiovascular Exam: REGULAR RHYTHM, RRR, +S1, +S2. absent: Gallop, Rubs, Systolic Murmur - GI/Abdominal Exam GI & Abdominal Exam: Normal Bowel Sounds, Soft, Unremarkable. absent: Guarding, Mass, Rebound, Rigid - Extremities Exam Extremities exam: normal inspection - Neurological Exam Neurological exam: Alert, CN II-XII Intact, Normal Gait, Oriented x3 - Psychiatric Exam Psychiatric exam: Normal Affect, Normal Mood - Skin Skin Exam: Dry, Normal Color, Warm Additional comments: L breast has dressing in place- clean and dry without drainage Discharge Plan - Discharge Medications Prescriptions: RX: Losartan [Cozaar] 100 mg PO DAILY #30 tab - Follow Up Plan Condition: STABLE Disposition: HOME/ ROUTINE Instructions: Breast Biopsy (DC), Lumpectomy (DC), Normocytic Normochromic Anemia (DC) Additional Instructions: 1. Continue home medications: Crestor, Metformin, and gave a refill medication for Losartan (Blood pressure medication) 2. Follow up with Dr. Clark as outpatient 3. Follow up with Dr. Bowers 4. Continue to follow up with Dr. Anne Referrals: Cheko Anne MD [Primary Care Provider] - Prabhakar Clark MD [Staff Provider] - Mohsen Bowers MD [Staff Provider] - <Vineet Alejo - Last Filed: 07/26/18 21:06> Provider - Provider Date of Admission: 07/22/18 08:27 Attending physician: Vineet Alejo MD Primary care physician: Cheko Anne MD Hospital Course - Lab Results Lab Results: Micro Results 07/26/18 08:00 Body Fluid - Other-Put In Comments Gram Stain - Final Most Recent Lab Values WBC 6.3 10^3/ul (4.5-11.0) 07/25/18 07:00 RBC 3.42 10^6/uL (3.5-6.1) L 07/25/18 07:00 Hgb 9.4 g/dL (14.0-18.0) L 07/25/18 07:00 Hct 29.7 % (42.0-52.0) L 07/25/18 07:00 MCV 86.8 fl (80.0-105.0) 07/25/18 07:00 MCH 27.5 pg (25.0-35.0) 07/25/18 07:00 MCHC 31.6 g/dl (31.0-37.0) 07/25/18 07:00 RDW 13.5 % (11.5-14.5) 07/25/18 07:00 Plt Count 285 10^3/uL (120.0-450.0) 07/25/18 07:00 MPV 8.9 fl (7.0-11.0) 07/25/18 07:00 Gran % 53.6 % (50.0-68.0) 07/24/18 07:30 Lymph % (Auto) 25.3 % (22.0-35.0) 07/24/18 07:30 Adams % (Auto) 14.6 % (1.0-6.0) H 07/24/18 07:30 Eos % (Auto) 6.2 % (1.5-5.0) H 07/24/18 07:30 Baso % (Auto) 0.3 % (0.0-3.0) 07/24/18 07:30 Gran # 3.20 (1.4-6.5) 07/24/18 07:30 Lymph # (Auto) 1.5 (1.2-3.4) 07/24/18 07:30 Adams # (Auto) 0.9 (0.1-0.6) H 07/24/18 07:30 Eos # (Auto) 0.4 (0.0-0.7) 07/24/18 07:30 Baso # (Auto) 0.02 K/mm3 (0.0-2.0) 07/24/18 07:30 PT 13.3 SECONDS (9.4-12.5) H 07/24/18 07:30 INR 1.15 07/24/18 07:30 APTT 34.3 Seconds (25.1-36.5) 07/24/18 07:30 Sodium 136 mmol/L (132-148) 07/24/18 07:30 Potassium 3.9 mmol/L (3.6-5.0) 07/24/18 07:30 Chloride 99 mmol/L (98-107) 07/24/18 07:30 Carbon Dioxide 29 mmol/L (21-33) 07/24/18 07:30 Anion Gap 11 (10-20) 07/24/18 07:30 BUN 10 mg/dL (7-21) 07/24/18 07:30 Creatinine 0.8 mg/dl (0.8-1.5) 07/24/18 07:30 Est GFR ( Amer) > 60 07/24/18 07:30 Est GFR (Non-Af Amer) > 60 07/24/18 07:30 POC Glucose (mg/dL) 103 mg/dL (65-110) 07/26/18 11:14 Random Glucose 120 mg/dL (70-110) H 07/24/18 07:30 Calcium 9.4 mg/dL (8.4-10.5) 07/24/18 07:30 Phosphorus 4.1 mg/dL (2.5-4.5) 07/24/18 07:30 Magnesium 2.2 mg/dL (1.7-2.2) 07/24/18 07:30 Iron 21 ug/dL (45-180) L 07/22/18 13:00 TIBC 296 ug/dL (261-462) 07/22/18 13:00 % Saturation 7 % (20-55) L 07/22/18 13:00 Ferritin 118.0 ng/mL 07/22/18 13:00 Total Bilirubin 0.4 mg/dL (0.2-1.3) 07/24/18 07:30 AST 24 U/L (17-59) 07/24/18 07:30 ALT 33 U/L (7-56) 07/24/18 07:30 Alkaline Phosphatase 109 U/L (38-126) 07/24/18 07:30 Total Protein 6.9 g/dL (5.8-8.3) 07/24/18 07:30 Albumin 3.7 g/dL (3.0-4.8) 07/24/18 07:30 Globulin 3.2 gm/dL 07/24/18 07:30 Albumin/Globulin Ratio 1.1 (1.1-1.8) 07/24/18 07:30 Blood Type O POSITIVE 07/20/18 10:30 Antibody Screen Negative 07/20/18 10:30 BBK History Checked Patient has bt 07/20/18 10:30 - Hospital Course Hospital Course: Pt seen and examined. I have reviewed the note of the medical receptionist biller and agree with it. I have discussed the assessment and plan with the resident. I have reviewed the patient's labs and medications. Pt has L breast cancer. He was bleeding and had surgical intervention. The wound is not bleeding at this time. He will be discharged home. He will follow up with Dr Vick for his cancer.
[2018-07-26] MEDS: Insulin Lispro (humaLOG) MEDIUM Coverage SC SCH ×2 (07:38→12:22)
[2018-07-26 08:26] VITALS: BP 112/66; PULSE 65; RESP 20; TEMP 97.5; O2SAT 98
--- NOTE | 2018-07-26 09:45 | CP.PCM.PN ---
Subjective - Date & Time of Evaluation Date of Evaluation: 07/26/18 Time of Evaluation: 07:45 - Subjective Subjective: Patient seen and examined. No acute events over night. Denies fever/chills. Tolerating diet. ~20ccs of sanguinopurulent drainage. Objective - Vital Signs/Intake and Output Vital Signs (last 24 hours): Temp Pulse Resp BP Pulse Ox 97.5 F L 65 20 112/66 98 07/26/18 06:00 07/26/18 06:00 07/26/18 06:00 07/26/18 06:00 07/26/18 06:00 Intake and Output: 07/26/18 07/26/18 06:59 18:59 Intake Total 800 Balance 800 - Medications Medications: Current Medications Atorvastatin Calcium (Lipitor) 40 mg PO DAILY [facility] Last Admin: 07/26/18 09:15 Dose: 40 mg Insulin Human Lispro (Humalog Med) 0 units SC ACHS [facility]; Protocol Last Admin: 07/26/18 07:38 Dose: Not Given Losartan Potassium (Cozaar) 100 mg PO DAILY [facility] Last Admin: 07/26/18 09:15 Dose: 100 mg - Labs Labs: 07/25/18 07:00 07/24/18 07:30 PT 13.3 SECONDS (9.4-12.5) H 07/24/18 07:30 INR 1.15 07/24/18 07:30 APTT 34.3 Seconds (25.1-36.5) 07/24/18 07:30 - Constitutional Appears: No Acute Distress - Head Exam Head Exam: NORMOCEPHALIC - Eye Exam Eye Exam: Normal appearance - ENT Exam ENT Exam: Mucous Membranes Moist - Respiratory Exam Respiratory Exam: NORMAL BREATHING PATTERN - Cardiovascular Exam Cardiovascular Exam: +S1, +S2 - GI/Abdominal Exam GI & Abdominal Exam: Soft - Neurological Exam Neurological Exam: Alert, Awake, Oriented x3 - Psychiatric Exam Psychiatric exam: Normal Mood - Skin Skin Exam: Dry, Intact, Warm Assessment and Plan - Assessment and Plan (Free Text) Assessment: 58M s/p wound exploration and hematoma evacuation 07/24 Plan: -Clear for d/c from surgical standpoint -D/c on Keflex TID [id number] -Drain management education -Follow up end of next week or Sunday of following week -d/w Dr. Efrain Bustamante PGY3
== END 2018-07-26 18:42 | disposition home health service (06) | DRG 908 ==
LOC: ED 09:34 → ERH 11:06 → 5RSO 15:28 → OBSVTOIN 07-22 08:27
PROVIDERS: ADMIT Internal Medicine Nephrology; ATTEND Internal Medicine Nephrology
PROC: 0H9U0ZZ Drainage of Left Breast, Open Approach (ICD-10-PCS; principal; 2018-07-24 09:00)
DX: L76.22 Postprocedural hemorrhage of skin and subcutaneous tissue following other procedure (principal); D62 Acute posthemorrhagic anemia; L76.32 Postprocedural hematoma of skin and subcutaneous tissue following other procedure; C50.922 Malignant neoplasm of unspecified site of left male breast; I10 Essential (primary) hypertension; E11.9 Type 2 diabetes mellitus without complications; G31.84 Mild cognitive impairment of uncertain or unknown etiology; E66.9 Obesity, unspecified; K21.9 Gastro-esophageal reflux disease without esophagitis; E78.00 Pure hypercholesterolemia, unspecified; E78.5 Hyperlipidemia, unspecified; Y83.8 Other surgical procedures as the cause of abnormal reaction of the patient, or of later complication, without mention of misadventure at the time of the procedure; Z17.0 Estrogen receptor positive status [ER+]; Z90.12 Acquired absence of left breast and nipple; Z68.28 Body mass index [BMI] 28.0-28.9, adult; Z79.84 Long term (current) use of oral hypoglycemic drugs